=== PATIENT | male | born 1950 | race Caucasian/White ===

== ENCOUNTER 2019-09-07 01:09 | Outpatient (CLI) | payer MEDICARE, MEDICAID, SELFPAY ==
--- NOTE | 2019-09-07 13:39 | DI.RAD_ITS ---
EXAM: XR LUMBAR SPINE AP, LAT CLINICAL HISTORY: PERSISTENT LOW BACK PAIN, CHRONIC,M54.5,G89.29, ? COMP FX. TECHNIQUE: 2D digital imaging was performed. COMPARISON: No exams were available for comparison FINDINGS: BONES: No fractures identified. There are endplate osteophytes throughout the lumbar spine. Degener ative facet arthropathy is seen in the lumbar spine particularly at L4-5 and L5-S1. DISKS: There is disc space narrowing at L3-4 and L5-S1. ALIGNMENT: Lumbar spinal alignment is within normal limits. No spondylolysis or spondylolisthesis. SOFT TISSUE: Vascular calcifications are present. IMPRESSION: 1. No acute fracture or subluxation. 2. Degenerative changes in the lumbar spine. DATA REPOSITORY: RADIATION DOSE DELIVERED:
== END 2019-09-07 01:29 ==
PROVIDERS: PCP Family Medicine; Visit Provider Family Medicine
DX: M54.5 Low back pain (principal); G89.29 Other chronic pain; M47.817 Spondylosis without myelopathy or radiculopathy, lumbosacral region; M51.37 Other intervertebral disc degeneration, lumbosacral region
CPT/HCPCS: 72100

== ENCOUNTER 2019-11-30 21:05 | Outpatient (REF) | payer MEDICARE, MEDICAID, OTHER, SELFPAY ==
[2019-11-30 19:25] LABS: BUN 19 mg/dL (7-18); CREATININE 1.03 mg/dL (0.70-1.30); Calcium 9.7 mg/dL (8.5-10.1); Calculated LDL 124 mg/dL (<100); Chloride 101 mmol/L (98-107); Cholesterol 201 mg/dL (<200); Glucose 121 mg/dL (74-106); HDL Cholesterol 44 mg/dL (40-60); Potassium 4.5 mmol/L (3.5-5.1); Sodium 139 mmol/L (136-145); Triglyceride 166 mg/dL (<150)
[2019-12-02 10:11] LABS: Hepatitis C Ab w Rflx HCV PCR Negative (Negative)
== END 2019-11-30 21:25 ==
LOC: NCHCN 21:05
PROVIDERS: PCP Family Medicine; Visit Provider Family Medicine
DX: I10 Essential (primary) hypertension (principal); R00.0 Tachycardia, unspecified; Z11.59 Encounter for screening for other viral diseases
CPT/HCPCS: 80048; 80061; 86803; 84443

== ENCOUNTER 2020-01-18 22:00 | Outpatient (REF) | payer MEDICARE, MEDICAID, SELFPAY ==
[2020-01-24 10:19] LABS: COVID-19 RT-PCR Result Positive (Negative)
== END 2020-01-18 22:20 ==
LOC: NCHCN 22:00
PROVIDERS: PCP Family Medicine; Visit Provider Nurse Practitioner Family
DX: J06.9 Acute upper respiratory infection, unspecified (principal)
CPT/HCPCS: U0003

== ENCOUNTER 2020-12-14 16:01 | Outpatient (REF) | payer MEDICARE, MEDICAID, SELFPAY ==
[2020-12-14 15:54] LABS: HCT 51.5 % (40.0-50.0); HGB 16.7 g/dL (13.5-17.5); MCH 30.6 pg (27.0-33.0); MCHC 32.4 % (32.0-36.0); MCV 94.3 fL (80-95); MPV 10.4 fL (8.0-11.0); Platelet Count 276 10^3/uL (130-400); RBC 5.46 10^6/uL (4.36-5.78); RDW 13.3 % (11.8-14.1); RDW-SD 46.2 fL; WBC 9.96 10^3/uL (4.4-10.8)
[2020-12-14 16:31] LABS: Bilirubin Negative (Negative); Blood Large (Negative); Clarity Cloudy (Clear); Glucose 100 mg/dL (Negative); Ketones Trace mg/dL (Negative); Leukocyte Esterase Negative (Negative); Nitrite Negative (Negative); Specific Gravity >= 1.030 (1.005-1.025); Urobilinogen 0.2 EU/dL (Up TO 0.2)
[2020-12-14 16:43] LABS: Bacteria Few HPF (Negative); C & S Indicated? Yes; Casts Negative LPF (Negative); Crystals Few Amorphous HPF (Negative); Epithelial Cells Few HPF (Negative); Mucus Moderate (Negative); RBC 20-50 HPF (0-2)
== END 2020-12-14 16:02 | disposition home or self-care (01) ==
LOC: LBN 16:01
PROVIDERS: PCP Family Medicine; Visit Provider Family Medicine
DX: R00.0 Tachycardia, unspecified (principal); R31.0 Gross hematuria
CPT/HCPCS: 85027; 81003; 81015; 82565; 87086

== ENCOUNTER → 2021-01-31 08:56 | Outpatient (BNVA) | payer MEDICARE, SELFPAY | PROVIDERS: PCP Family Medicine; Referring Provider Family Medicine; Visit Provider Nurse Practitioner Gerontology | DX: R31.0 Gross hematuria (principal); N40.1 Benign prostatic hyperplasia with lower urinary tract symptoms; N13.8 Other obstructive and reflux uropathy; J44.9 Chronic obstructive pulmonary disease, unspecified; I10 Essential (primary) hypertension; F17.210 Nicotine dependence, cigarettes, uncomplicated | CPT/HCPCS: 81003; 99204 ==

== ENCOUNTER 2021-01-31 15:25 | Outpatient (REF) | payer MEDICARE, SELFPAY ==
[2021-01-31 14:55] LABS: CREATININE 1.1 mg/dL (0.70-1.30)
[2021-01-31 22:55] LABS: PSA, Screening 1.7 ng/mL (0.0-6.5)
== END 2021-01-31 15:26 | disposition home or self-care (01) ==
LOC: LBN 15:25
PROVIDERS: PCP Family Medicine; Visit Provider Nurse Practitioner Gerontology
DX: R31.9 Hematuria, unspecified (principal); Z12.5 Encounter for screening for malignant neoplasm of prostate
CPT/HCPCS: 84153; 82565

== ENCOUNTER 2021-02-23 00:20 | Outpatient (CLI) | payer MEDICARE, SELFPAY ==
--- NOTE | 2021-02-23 13:00 | DI.CT_ITS ---
Exam(s) CT ABDOMEN PELVIS WO/W EXAM: CT ABDOMEN PELVIS WO/W CLINICAL HISTORY: gross hematuria,R31.9 TECHNIQUE: Imaging Protocol: Axial computed tomography images with coronal and sagittal reformatted images were created and reviewed CONTRAST MATERIAL: Intravenous: Omnipaque 350 Contrast volume:100 mL Oral: No COMPARISON: No exams were available for comparison FINDINGS: ABDOMEN: Lung Bases: Small hiatal hernia. Coronary artery calcifications. Liver: Normal density. No measurable mass. Portal, Superior Mesenteric, and Splenic Veins: Unremarkable. Gallbladder and Biliary Tract: No radiodense calculus or dilation. Pancreas: Normal density, no abnormal calcifications or inflammatory process. Spleen: Normal. Adrenals: No masses seen. Kidneys: Normal size, contour and axis. No radiodense stones or obstructive uropathy. There is a simp le 2.4 cm cyst in the superior pole of the left kidney. No follow-up is recommended. Abdominal Aorta: Abdominal portion non-dilated. Atherosclerosis. Bowel: No obstruction or bowel wall thickening. Appendix is unremarkable. Diverticulosis is seen in t he sigmoid colon but no evidence of acute diverticulitis. Peritoneal Cavity: No ascites, collection or mesenteric inflammatory response. No free air. Lymph Nodes: Within normal limits. Bones: Within normal limits for the patient's age. Soft Tissues: Unremarkable. PELVIS: Bladder: There is a 1 cm nodule along the right posterior urinary bladder wall. It lies just lateral and superior to the insertion of the right ureter. Reproductive Organs: Enlarged prostate gland. Lymph Nodes: Within normal limits. Bones: Within normal limits for the patient's age. IMPRESSION: 1. 1 cm right posterior bladder wall mass. Primary diagnostic concern is for urinary bladder neoplas m. 2. No evidence of nephrolithiasis or hydronephrosis. 3. 2.4 cm simple left renal cyst. RADIATION DOSE DELIVERED: 3,211.63mGy.cm Total DLP 3,211.63mGy.cm Total DLP DATA REPOSITORY: All CT scans at this facility are submitted to the National Radiology Data Registry (NRDR) Dose Index Registry (DIR) with the [employer] (ACR). RADIATION OPTIMIZATION: All CT scans at this facility use at least one of these dose optimization te chniques: automated exposure control; mA and/or kV adjustment per patient size (includes targeted exa ms where dose is matched to clinical indication); or iterative reconstruction.
[2021-02-23] MEDS: Omnipaque 350 MG/ML 100 ML BTL IJ (13:06)
== END 2021-02-23 00:40 ==
PROVIDERS: PCP Family Medicine; Visit Provider Nurse Practitioner Gerontology
DX: R31.0 Gross hematuria (principal); N32.89 Other specified disorders of bladder; N28.1 Cyst of kidney, acquired
CPT/HCPCS: 74178; J3490

== ENCOUNTER → 2021-03-12 08:11 | Outpatient (BNVA) | payer MEDICARE, SELFPAY | PROVIDERS: PCP Family Medicine; Referring Provider Family Medicine; Visit Provider Nurse Practitioner Gerontology | DX: R31.0 Gross hematuria (principal); N32.89 Other specified disorders of bladder; Z71.2 Person consulting for explanation of examination or test findings | CPT/HCPCS: 99214 ==

== ENCOUNTER 2021-03-20 01:48 | Outpatient (CLI) | payer MEDICARE, SELFPAY ==
[2021-03-20 12:59] LABS: Source Nasal/Nares
[2021-03-20 16:28] LABS: COVID-19 PCR Negative (Negative)
== END 2021-03-20 01:49 | disposition home or self-care (01) ==
PROVIDERS: Nurse Practitioner Gerontology; PCP Family Medicine; Visit Provider Urology
DX: Z20.822 Contact with and (suspected) exposure to COVID-19 (principal); Z01.818 Encounter for other preprocedural examination
CPT/HCPCS: 87635

== ENCOUNTER 2021-03-22 08:00 | Day surgery (SDC) | payer MEDICARE, SELFPAY ==
[2021-03-22 08:19] VITALS: BP 143/97; PULSE 107; RESP 22; TEMP 36.7; O2SAT 98
[2021-03-22] MEDS: Lactated Ringers 1,000 ML 80 ML IV (09:03)
--- NOTE | 2021-03-22 09:54 | W.ANESPRE ---
General Info Date of Service Date Performed: 03/22/21 Height: 5 ft 11 in Weight: 104.6 kg Body Mass Index (BMI): 32.1 Surgical Procedure: Operation Date: 03/22/21 10:10 Proposed Procedures Side Surgeon p Cystoscopy w/TURBT Carter Ireland MD Meds Allergies and Home Medications Allergies Allergy/AdvReac Type Severity Reaction Status Date / Time mussels Allergy Severe Anaphylaxis Unverified 03/22/21 08:52 Iodinated Contrast Media Allergy Verified 03/22/21 08:52 Home Medication Medication Instructions Recorded albuterol sulfate 90 mcg/actuation 2 puff INHALATION Q4H PRN g 12/20/20 aerosol inhaler budesonide-formoterol HFA 80 2 puff INHALATION DAILY g 12/20/20 mcg-4.5 mcg/actuation aerosol inhaler cyclobenzaprine 10 mg tablet 10 mg PO TID PRN 12/20/20 lisinopril 10 mg tablet 10 mg PO DAILY 12/20/20 meloxicam 15 mg tablet 15 mg PO DAILY 12/20/20 Current Visit Medications: Current Medications Generic Name Dose Route Start Last Admin Trade Name Freq PRN Reason Stop Dose Admin Ringer's Solution 1,000 mls @ 80 mls/hr 03/22/21 06:00 03/22/21 09:03 IV 04/20/21 23:59 80 mls/hr INFUSION BRYON Administration Cefazolin Sodium/Dextrose 2 gm in 50 mls @ 100 mls/hr 03/22/21 06:00 Ancef Duplex IVPB 03/22/21 16:00 PREOP BRYON IV Miscellaneous Supplies 1 each 03/22/21 06:00 Iv Access IV 04/20/21 23:59 DIRECTED BRYON Sodium Chloride 0 ml 03/22/21 06:00 Normal Saline Flush 10 Ml Syr IV 04/20/21 23:59 PRN PRN Sodium Chloride 0 ml 03/22/21 06:00 Normal Saline 10 Ml Vial IJ 04/20/21 23:59 DIRECTED PRN Sterile Water 0 ml 03/22/21 06:00 Water,Injection,Sterile 10 Ml Vial IJ 04/20/21 23:59 DIRECTED PRN PFSH Active Problems Active Problems: Problem Status Onset Code BPH w urinary obs/LUTS N40.1, N13.8 Medical History Medical History COPD (chronic obstructive pulmonary disease) COVID-19 01/2020-Asymptomatic Essential hypertension Gross hematuria Smoker Tachycardia Surgical History Surgical History Hx of tonsillectomy Tobacco Smoking/Tobacco Use Status: Current every day Substance Use Substance use: Never Vital Signs and Lab Results Vital Signs Most Recent Vital Signs in EMR: Most Recent Vital Signs Temp Pulse Resp BP Pulse Ox 36.7 C 107 H 22 143/97 H 98 03/22/21 08:19 03/22/21 08:19 03/22/21 08:19 03/22/21 08:19 03/22/21 08:19 Lab Results Blood Type / Crossmatch: No Data to Display Complete Blood Count: No Data to Display Complete Metabolic Panel: No Data to Display Liver Function Panel: No Data to Display Coagulation Panel: No Data to Display Cardiac Panel: No Data to Display Arterial Blood Gas: No Data to Display Venous Blood Gas: No Data to Display Pancreas Panel: No Data to Display Thyroid Panel: No Data to Display Infectious Disease: Coronavirus (COVID-19)(PCR) Negative (Negative) 03/20/21 08:58 03/20/21 Coronavirus 2019 Source Nasal/Nares 03/20/21 08:58 03/20/21 Blood Cultures: No Data to Display Toxicology Panel: No Data to Display Anesthesia Assessment and Plan Anesthesia History Personal History: No History of Anesthesia Complications Family History: No Family History of Anesthesia Complications Exercise Tolerance Exercise Tolerance: Metabolic Equivalents>4 Cardiac & Pulmonary Exam Cardiac Exam: Normal S1/S2 Heart Sounds Pulmonary Exam: Clear Bilateral Breath Sounds Implantable Cardiac Device Does patient have a Pacemaker or an ICD?: No Airway Exam Known Difficult Airway: Yes Mallampati Class: 2 Mouth Opening: Normal (> 3cm) Thyromental Distance: Greater than 3 cm Neck Range of Motion: Full ROM and Limited ROM Neck Circumference: Thick Teeth Condition: Normal Dentition ASA Classification ASA Score: ASA 2 Emergency Case?: No NPO Status NPO Status: NPO Clears >2 hours, Solids >8 hours Anesthesia Plan Resuscitation Status: Full Code Anesthesia Technique: General Anesthesia Airway Planned: LMA Monitors Used: Standard Monitors Preoperative Comments:: 70 yo male for TURBT. Sig PMHx: COPD (albuterol, budesonide-formoterol), HTN (lisinopril), smoker.
[2021-03-22 09:56] VITALS: BMI 32.1
--- NOTE | 2021-03-22 10:05 | W.PM.HP.N ---
Date of service: 03/22/21 Time of Service: 10:23 Assessment and Plan Assessment and plan (1) Gross hematuria: Assessment and plan: For cystoscopy with possible TUR bladder tumor History of Present Illness History of Present Illness Chief Complaint: Gross hematuria Narrative: Isaac is a 70-year-old male with history of gross hematuria. He has had several bouts of gross hematuria that lasted a few days each time. He notes since his last episode he has had no further gross hematuria. Originally there was thought that there was flank pain that coincided with the gross hematuria. Then he noted that he was caregiving for his which was causing him back pain. His CT urogram showed a questionable bladder mass. He presents for cystoscopy and possible TURBT. We arranged for an overnight stay in the hospital if he should need continuous bladder irrigation. Review of Systems Constitutional Comments: No fevers or chills No vision change or dysphasia No diabetes or thyroid Short of breath due ti COPD. No hemoptysis No chest pain or palpitations No nausea, vomiting, hepatitis, ulcers, jaundice No seizures, strokes or peripheral neuropathy No bleeding disorders or anemia No gout PFSH All Active Problems BPH w urinary obs/LUTS (Acute) Medical History COPD (chronic obstructive pulmonary disease) COVID-19 01/2020-Asymptomatic Essential hypertension Gross hematuria Smoker Tachycardia Surgical History Hx of tonsillectomy Social History Smoking/Tobacco Use Status: Current every day Smoking risk assessment performed?: Yes Drug use: Never Meds Allergies and Home Medications Allergies Allergy/AdvReac Type Severity Reaction Status Date / Time mussels Allergy Severe Anaphylaxis Unverified 03/22/21 08:52 Iodinated Contrast Media Allergy Verified 03/22/21 08:52 Home Medications Medication Instructions Recorded Confirmed Type albuterol sulfate 90 mcg/actuation 2 puff INHALATION Q4H PRN g 12/20/20 03/22/21 History aerosol inhaler budesonide-formoterol HFA 80 2 puff INHALATION DAILY g 12/20/20 03/22/21 History mcg-4.5 mcg/actuation aerosol inhaler cyclobenzaprine 10 mg tablet 10 mg PO TID PRN 12/20/20 03/22/21 History lisinopril 10 mg tablet 10 mg PO DAILY 12/20/20 03/22/21 History meloxicam 15 mg tablet 15 mg PO DAILY 12/20/20 03/22/21 History Exam Const General: cooperative Neck Neck: supple Resp Effort & Inspection: normal respiratory effort Auscultation: clear to auscultation bilaterally Cardio Rate: regular rate Rhythm: regular rhythm GI Inspection: normal to inspection Palpation: soft Neuro General: patient alert, patient awake and patient oriented x3 Results Last Vital Signs Temp 36.7 C 03/22/21 08:19 Pulse 107 H 03/22/21 08:19 Resp 22 03/22/21 08:19 BP 143/97 H 03/22/21 08:19 Pulse Ox 98 03/22/21 08:19
[2021-03-22] MEDS: ceFAZolin 2 GM/50 ML BAG IVPB (10:37)
[2021-03-22] MEDS: Lidocaine 2% Jelly 6 ML SYR (10:50)
--- NOTE | 2021-03-22 10:58 | BLADDER_PTH ---
PATIENT: Isaac Pascal LOC: [facility] U#:[id number] AGE/SX: 70/M ROOM: RE03/22/[address]: Carter Ireland MD : [id number] BED: DIS: 03/22/2021 SPEC #: [id number] RECD: 03/22/21 12:40 STATUS: ANABELA REQ #: [id number] JAMA: 03/22/21 10:[address]: Carter Ireland DEPT: Surgical Specimen RECD BY: Kelly Huertas ENTERED: 03/22/21 12:40 SP TYPE: Bladder OTHR DR: Joe Caban Tissues: 1 - BLADDER CURRETTINGS Procedures: GROSS AND MICRO LEVEL 5 Comments: [id number]
--- NOTE | 2021-03-22 11:05 | W.PM.DSUDISC ---
Discharge Plan Disposition Patient Disposition: HOME Condition: Stable Discharge Details Reason For Visit: bladder tumor Attending Provider: Carter Ireland Primary Care Provider: Joe Caban Home Meds and New Rx's Prescriptions: No Action meloxicam 15 mg tablet 15 mg PO DAILY RF: 0 albuterol sulfate 90 mcg/actuation HFA aerosol inhaler 2 puff inhalation Q4H PRNRF: 0 budesonide-formoterol 80-4.5 mcg/actuation HFA aerosol inhaler 2 puff inhalation DAILY RF: 0 lisinopril 10 mg tablet 10 mg PO DAILY RF: 0 cyclobenzaprine 10 mg tablet 10 mg PO TID PRNRF: 0 Discharge Instructions Additional Instructions: no straining or lifting over 10 pounds for 5 to 7 days needs followup appt in 2 weeks to review surgical pathology Activity:: see above Shower/Bathe:: 24 hours Diet:: As Tolerated Discharge Orders Discharge Orders: Discharge Order (Routine); Ordered 03/22/21 Ordered By: Carter Ireland DS: Diagnosis Discharge Diagnosis (1) Gross hematuria:
--- NOTE | 2021-03-22 11:12 | ROE_ITS ---
Date of service: 03/22/21 Time of Service: 11:12 Operative Note Operative Note DATE OF PROCEDURE: 03/22/21 PRE-OP DIAGNOSIS: Gross hematuria POST-OP DIAGNOSIS: other Bladder tumor PROCEDURE: cystoscopy with TURBT (2 to 5 cm) - right lateral wall SURGEON: Carter Ireland ANESTHESIA TYPE: Local By Surgeon and General:No Airway Refer to Anesthesia Record ESTIMATED BLOOD LOSS: 20 PATHOLOGY: other (bladder tumor) COMPLICATIONS: None Patient was transported to: same day Patient's condition: stable Indications: This is a 70-year-old gentleman who has a history of intermittent episodes of gross painless hematuria. On CT urogram, there was a filling defect identified on the right side of his bladder. He presents for cystoscopy with possible transurethral resection Findings: 4 cm papillary lesion right lateral bladder wall extending to right ureteral orifice Procedure Description: The patient was brought to the operating room on 03/22/2021. He was given preoperative IV antibiotics. After successful induction of general anesthesia, he was placed in the dorsal lithotomy position. 2% Xylocaine jelly was instilled into the urethra to act as a local anesthetic. A 22 [place] rigid cystoscope was passed through the urethra and into the bladder. The urethra and bladder were inspected with a 30 degree lens. The pendulous, bulbar and membranous urethra was all appeared normal with no strictures. The prostatic urethra showed lateral lobe enlargement but no significant median lobe. The bladder neck was entered and the bladder mucosa was inspected. The left ureteral orifice appeared normal. There was a papillary lesion measuring approximately 4 cm arising from the right lateral bladder wall and extending out toward the right ureteral orifice. Some of the papillary mucosa was actually in front of the ureteral orifice as well. No additional abnormal areas were noted. We removed the cystoscope and passed a 24 [place] resectoscope sheath through the urethra into the bladder. Transurethral resection of the visible abnormal mucosa was performed using an [employer] resectoscope and bipolar cautery. All resected tissue was evacuated and sent to pathology for permanent section. Coagulation current was used on the tumor anterior to the ureteral orifice. The orifice remained patent at the completion of the procedure. With no active bleeding, we elected not to place a urethral catheter. The bladder was emptied and the resectoscope was removed. The patient tolerated the procedure well with no complications.
[2021-03-22 11:16] VITALS: BP 128/80; PULSE 97; RESP 20; TEMP 36.3; O2SAT 98
[2021-03-22 11:48] VITALS: BP 139/82; PULSE 81; RESP 20; TEMP 36.5; O2SAT 94
[2021-03-22] MEDS: Phenazopyridine 200 MG TAB PO (11:54)
--- NOTE | 2021-03-22 12:01 | W.ANESPOSTOP ---
Postoperative Evaluation Date, Time and Location Date Performed: 03/22/21 Time Performed: 11:48 Patient Location: Day Surgery Unit Vital Signs Most Recent Imported Vital Signs: Most Recent Vital Signs Temp Pulse Resp BP Pulse Ox 36.5 C 81 20 139/82 94 03/22/21 11:48 03/22/21 11:48 03/22/21 11:48 03/22/21 11:48 03/22/21 11:48 Pain Score Most Recent Pain Score: Most Recent Pain Score Pain Level 3 03/22/21 11:48 Assessment Mental Status: Awake (Alert & Oriented to Patient Baseline) Airway and Respiratory Function: Patent airway with normal (patient baseline) respiratory exam Cardiovascular Function: Hemodynamically Stable Hydration Status: Adequately Hydrated Nausea & Vomiting: No Nausea or Vomiting Pain: Pain is tolerable per patient Peripheral Nerve Block: Patient did not receive a nerve block
== END 2021-03-22 12:46 | disposition home or self-care (01) ==
PROVIDERS: PCP Family Medicine; Visit Provider Urology
PROC: 0TJB8ZZ Inspection of Bladder, Via Natural or Artificial Opening Endoscopic (ICD-10-PCS; CPT 52000; principal; 2021-03-22 10:00)
DX: R31.0 Gross hematuria (principal); J44.9 Chronic obstructive pulmonary disease, unspecified; F17.210 Nicotine dependence, cigarettes, uncomplicated; R00.0 Tachycardia, unspecified; Z86.16 Personal history of COVID-19; C67.2 Malignant neoplasm of lateral wall of bladder
CPT/HCPCS: 52235; 87624; 88307; J0690; J1885; J2001; J2405

== ENCOUNTER → 2021-04-06 10:49 | Outpatient (BNVA) | payer MEDICARE, SELFPAY | PROVIDERS: PCP Family Medicine; Referring Provider Family Medicine; Visit Provider Urology | DX: C67.9 Malignant neoplasm of bladder, unspecified (principal); R35.0 Frequency of micturition; R30.0 Dysuria | CPT/HCPCS: 99213 ==

== ENCOUNTER → 2021-07-06 08:44 | Outpatient (BNVA) | payer MEDICARE, SELFPAY | PROVIDERS: PCP Family Medicine; Referring Provider Family Medicine; Visit Provider Urology | DX: N40.1 Benign prostatic hyperplasia with lower urinary tract symptoms (principal); N13.8 Other obstructive and reflux uropathy; C67.9 Malignant neoplasm of bladder, unspecified | CPT/HCPCS: 52000; 81003 ==

== ENCOUNTER 2021-12-05 16:28 | Outpatient (REF) | payer MEDICARE, SELFPAY ==
[2021-12-05 15:24] LABS: Anion Gap 5.9 mmol/L (3-11); BUN 15 mg/dL (7-18); CO2 30.1 mmol/L (21.0-32.0); CREATININE 1.1 mg/dL (0.70-1.30); Calcium 9.3 mg/dL (8.5-10.1); Chloride 102 mmol/L (98-107); Estimated GFR 70.88 (mL/min/1.73m2); Glucose 268 mg/dL (74-106); NT-proBNP 39 pg/mL (<300); Potassium 4.6 mmol/L (3.5-5.1); Sodium 138 mmol/L (136-145)
[2021-12-05 15:51] LABS: Calculated LDL 122 mg/dL (<100); Cholesterol 195 mg/dL (<200); HDL Cholesterol 52 mg/dL (40-60); Triglyceride 109 mg/dL (<150)
== END 2021-12-05 16:29 | disposition home or self-care (01) ==
LOC: NCHCN 16:28
PROVIDERS: PCP Family Medicine; Visit Provider Family Medicine
DX: I10 Essential (primary) hypertension (principal); R06.09 Other forms of dyspnea
CPT/HCPCS: 80048; 80061; 83880

== ENCOUNTER → 2022-01-04 00:19 | Outpatient (CLI) | payer MEDICARE, SELFPAY ==
--- NOTE | 2022-01-04 07:52 | DI.CTLCSR_ITS ---
Exam(s) CT CHEST LUNG CANCER SCREEN EXAM: CT CHEST LUNG CANCER SCREEN CLINICAL HISTORY: SMOKER F17.210 F17.200 SCREENING FOR LUNG CANCER. TECHNIQUE: Imaging Protocol: Low Dose Technique CONTRAST MATERIAL: None COMPARISON: CT CT ABDOMEN PELVIS WO/W from 02/23/2021 FINDINGS: CHEST: LUNGS: There are no ominous pulmonary nodules. There are no confluent infiltrates. No pleural effusi ons. MEDIASTINUM: There is no obvious hilar nor mediastinal adenopathy. CARDIAC: Heart size is normal. There is no pericardial effusion.Caliber of the thoracic aorta is wit hin normal limits. OTHER: OSSEOUS: No significant osseous lesions.. IMPRESSION: 1. No significant pulmonary nodules. 2. No infiltrates nor pleural effusions nor intrathoracic adenopathy. 3. Lung RADS Cat 1 - Negative: No nodules and definitely benign nodules Lung-RADS 1.0 CATEGORIES: Category 0 - Prior chest CT exam(s) being located for comparison. Category 1 - Annual screening in 12 months. No nodules or definitely benign nodules. Category 2 - Annual screening in 12 months. Benign appearance. Nodules with low likelihood of becomin g active cancer. Category 3 - 6-month follow-up. Probably benign. Short-term follow-up suggested. Nodules with low lik elihood of becoming active cancer. Category 4A - 3-month follow-up and CT/PET if >8 mm in size. Suspicious finding. Findings which requi re additional testing. Category 4B - Findings which require additional testing and tissue sampling. Category 4X - Category 3 or 4 nodules with additional features or imaging findings that increases the suspicion of malignancy. Modifier S- Potentially clinically significant findings (non lung cancer) RADIATION DOSE DELIVERED: Total DLP !Error CTDIvol DATA REPOSITORY: All CT scans at this facility are submitted to the National Radiology Data Registry (NRDR) Dose Index Registry (DIR) with the [employer] (ACR). RADIATION OPTIMIZATION: All CT scans at this facility use at least one of these dose optimization te chniques: automated exposure control; mA and/or kV adjustment per patient size (includes targeted exa ms where dose is matched to clinical indication); or iterative reconstruction.
== END ==
PROVIDERS: PCP Family Medicine; Visit Provider Family Medicine
DX: F17.210 Nicotine dependence, cigarettes, uncomplicated (principal); Z12.2 Encounter for screening for malignant neoplasm of respiratory organs
CPT/HCPCS: 52000; 71271; 81003

== ENCOUNTER 2022-03-21 06:13 | Day surgery (SDC) | payer MEDICARE, SELFPAY ==
[2022-03-21] VITALS (10 sets, daily range): BP systolic 118–150; BP diastolic 70–102; PULSE 70–105; RESP 14–20; TEMP 36.1–36.5; O2SAT 93–933; BMI 29.4
[2022-03-21] MEDS: Lactated Ringers 1,000 ML 80 ML IV (06:45)
--- NOTE | 2022-03-21 07:01 | W.ANESPRE ---
General Info Date of Service Date Performed: 03/21/22 Height: 5 ft 11 in Weight: 95.7 kg Body Mass Index (BMI): 29.4 Surgical Procedure: Operation Date: 03/21/22 07:40 Proposed Procedure Side Surgeon p Cystoscopy/Transurethral Resection Bladder Tumor/Instill Mytomycin Carter Ireland MD Meds Allergies and Home Medications Allergies Allergy/AdvReac Type Severity Reaction Status Date / Time mussels Allergy Severe Anaphylaxis Unverified 03/21/22 06:24 Iodinated Contrast Media Allergy Verified 03/21/22 06:24 Home Medication Medication Instructions Recorded albuterol sulfate 90 mcg/actuation 2 puff inhalation Q4H PRN 12/20/20 aerosol inhaler budesonide-formoterol HFA 80 2 puff inhalation DAILY 12/20/20 mcg-4.5 mcg/actuation aerosol inhaler cyclobenzaprine 10 mg tablet 10 mg PO TID PRN 12/20/20 lisinopril 10 mg tablet 10 mg PO DAILY 12/20/20 acetaminophen 500 mg tablet 1,000 mg PO Q6H PRN 01/17/22 (Tylenol Extra Strength) varenicline 0.5 mg (11)-1 mg (42) See Rx Instructions PO PER PKG DIR 01/17/22 tablets in a dose pack Current Visit Medications: Current Medications Generic Name Dose Route Start Last Admin Trade Name Freq PRN Reason Stop Dose Admin Mitomycin 40 mg/ Sodium 0 mg 03/21/22 06:00 Chloride 40 ml IJ 03/21/22 16:00 TODAY BRYON Ringer's Solution 1,000 mls @ 80 mls/hr 03/21/22 06:00 03/21/22 06:45 IV 04/19/22 23:59 80 mls/hr INFUSION BRYON Administration Cefazolin Sodium/Dextrose 2 gm in 50 mls @ 100 mls/hr 03/21/22 06:00 Ancef Duplex IVPB 03/21/22 16:00 PREOP BRYON IV Miscellaneous Supplies 1 each 03/21/22 06:00 Iv Access IV 04/19/22 23:59 DIRECTED BRYON Sodium Chloride 0 ml 03/21/22 06:00 Normal Saline Flush 10 Ml Syr IV 04/19/22 23:59 PRN PRN Sodium Chloride 0 ml 03/21/22 06:00 Normal Saline 10 Ml Vial IJ 04/19/22 23:59 DIRECTED PRN Sterile Water 0 ml 03/21/22 06:00 Water,Injection,Sterile 10 Ml Vial IJ 04/19/22 23:59 DIRECTED PRN PFSH Active Problems Active Problems: Problem Status Onset Code BPH w urinary obs/LUTS N40.1, N13.8 Primary bladder malignant neoplasm C67.9 Medical History Medical History COPD (chronic obstructive pulmonary disease) COVID-19 01/2020-Asymptomatic Essential hypertension Gross hematuria Smoker Tachycardia Surgical History Surgical History (Updated 03/21/22 @ 06:17 by Ann Marie Mora, JAMIN) History of transurethral resection of bladder tumor (TURBT) 03/22/2022 Hx of tonsillectomy Tobacco Smoking/Tobacco Use Status: Current every day Tobacco Type: cigarettes Alcohol Alcohol Intake: current Alcohol intake frequency: a few times a week Substance Use Substance use: Never Substance use type: does not use Vital Signs and Lab Results Vital Signs Most Recent Vital Signs in EMR: Most Recent Vital Signs Temp Pulse Resp BP Pulse Ox 36.3 C L 104 H 18 118/92 H 94 03/21/22 06:20 03/21/22 07:00 03/21/22 07:00 03/21/22 07:00 03/21/22 07:00 Lab Results Blood Type / Crossmatch: No Data to Display Complete Blood Count: No Data to Display Complete Metabolic Panel: No Data to Display Liver Function Panel: No Data to Display Coagulation Panel: No Data to Display Cardiac Panel: No Data to Display Arterial Blood Gas: No Data to Display Venous Blood Gas: No Data to Display Pancreas Panel: No Data to Display Thyroid Panel: No Data to Display Infectious Disease: No Data to Display Blood Cultures: No Data to Display Toxicology Panel: No Data to Display Anesthesia Assessment and Plan Anesthesia History Personal History: No History of Anesthesia Complications and No History of General Anesthesia Family History: No Family History of Anesthesia Complications Exercise Tolerance Exercise Tolerance: Metabolic Equivalents>4 Pertinent Negatives Pertinent Negatives: No Symptoms of GERD, No Major Cardiovascular Symptoms or Complaints and No Major Pulmonary Symptoms or Complaints Cardiac & Pulmonary Exam Cardiac Exam: Normal S1/S2 Heart Sounds Pulmonary Exam: Clear Bilateral Breath Sounds Implantable Cardiac Device Does patient have a Pacemaker or an ICD?: No Airway Exam Known Difficult Airway: Yes Mallampati Class: 2 Mouth Opening: Normal (> 3cm) Thyromental Distance: Greater than 3 cm Neck Range of Motion: Full ROM and Limited ROM Neck Circumference: Thick Teeth Condition: Normal Dentition ASA Classification ASA Score: ASA 2 Emergency Case?: No NPO Status NPO Status: NPO Clears >2 hours, Solids >8 hours Anesthesia Plan Resuscitation Status: Full Code Anesthesia Technique: General Anesthesia Airway Planned: LMA Monitors Used: Standard Monitors
--- NOTE | 2022-03-21 07:13 | W.PM.HP.N ---
Date of service: 03/21/22 Time of Service: 07:14 Assessment and Plan Assessment and plan (1) Primary bladder malignant neoplasm: Status: Acute Assessment and plan: With his recurrent tumor, we will plan to do a TUR and instill a single dose of Mitomycin C into the bladder History of Present Illness History of Present Illness Chief Complaint: Bladder cancer Narrative: This is a 71-year-old gentleman who has a history of low-grade, noninvasive urothelial cell carcinoma of the bladder.? His initial diagnosis was in March 2021. On his initial surveillance cystoscopy, no recurrent tumor was identified.? Followup cystoscopy showed a small papillary lesion at the dome. He presents for TURBT. He is not seeing any gross hematuria.? He does have some double voiding but no episodes of retention. Review of Systems Narrative: No fevers or chills No vision change or dysphasia No diabetes or thyroid No shortness of breath, cough or hemoptysis No chest pain or palpitations No nausea, vomiting, hepatitis, ulcers, jaundice, diarrhea or constipation No seizures, strokes or peripheral neuropathy No bleeding disorders or anemia No gout PFSH All Active Problems BPH w urinary obs/LUTS (Acute) Primary bladder malignant neoplasm (Acute) Medical History COPD (chronic obstructive pulmonary disease) COVID-19 01/2020-Asymptomatic Essential hypertension Gross hematuria Smoker Tachycardia Surgical History (Updated 03/21/22 @ 06:17 by Ann Marie Mora RN) History of transurethral resection of bladder tumor (TURBT) 03/22/2022 Hx of tonsillectomy Social History Smoking/Tobacco Use Status: Current every day Tobacco Type: cigarettes Smoking risk assessment performed?: Yes Alcohol Intake: current Alcohol Intake frequency: a few times a week Drug use: Never Substance use type: does not use Do you feel safe at home: Yes Do you feel safe in your relationship?: Yes Meds Allergies and Home Medications Allergies Allergy/AdvReac Type Severity Reaction Status Date / Time mussels Allergy Severe Anaphylaxis Unverified 03/21/22 06:24 Iodinated Contrast Media Allergy Verified 03/21/22 06:24 Home Medications Medication Instructions Recorded Confirmed Type albuterol sulfate 90 mcg/actuation 2 puff inhalation Q4H PRN 12/20/20 03/21/22 History aerosol inhaler budesonide-formoterol HFA 80 2 puff inhalation DAILY 12/20/20 03/21/22 History mcg-4.5 mcg/actuation aerosol inhaler cyclobenzaprine 10 mg tablet 10 mg PO TID PRN 12/20/20 03/21/22 History lisinopril 10 mg tablet 10 mg PO DAILY 12/20/20 03/21/22 History acetaminophen 500 mg tablet 1,000 mg PO Q6H PRN 01/17/22 03/21/22 History (Tylenol Extra Strength) varenicline 0.5 mg (11)-1 mg (42) See Rx Instructions PO PER PKG DIR 01/17/22 03/21/22 History tablets in a dose pack Exam Const General: cooperative Neck Neck: supple Resp Effort & Inspection: normal respiratory effort Auscultation: clear to auscultation bilaterally Cardio Rate: regular rate Rhythm: regular rhythm GI Palpation: no masses Neuro General: patient alert, patient awake and oriented Results Last Vital Signs Temp 36.3 C L 03/21/22 06:20 Pulse 104 H 03/21/22 07:00 Resp 18 03/21/22 07:00 BP 118/92 H 03/21/22 07:00 Pulse Ox 94 03/21/22 07:00 Time Spent Time spent with Patient: <40 minutes Time was spent: counseling the patient
[2022-03-21] MEDS: ceFAZolin 2 GM/50 ML BAG IVPB (08:02)
[2022-03-21] MEDS: Lidocaine 2% Jelly 6 ML SYR (08:07)
--- NOTE | 2022-03-21 08:16 | BLADDER_PTH ---
PATIENT: Isaac Pascal LOC: [facility] U#:[id number] AGE/SX: 71/M ROOM: RE03/21/[address]: Carter Ireland MD : 1950 BED: DIS: 03/21/2022 SPEC #: [id number] RECD: 03/21/22 12:21 STATUS: ANABELA REQ #: [id number] JAMA: 03/21/22 08:[address]: Carter Ireland DEPT: Surgical Specimen RECD BY: Kelly Huertas ENTERED: 03/21/22 12:22 SP TYPE: Bladder OTHR DR: Joe Caban Tissues: 1 - BLADDER BIOPSY Procedures: GROSS AND MICRO LEVEL 4 Comments: [id number]
[2022-03-21] MEDS: mitoMYcin 40 MG, Normal Saline 40 ML IJ (08:18)
--- NOTE | 2022-03-21 08:31 | W.PM.DSUDISC ---
Date of service: 03/21/22 Time of Service: 08:31 Discharge Plan Disposition Patient Disposition: Home Condition: Stable Discharge Details Reason For Visit: bladder tumor Attending Provider: Carter Ireland Primary Care Provider: Joe Caban Home Meds and New Rx's Prescriptions: No Action albuterol sulfate 90 mcg/actuation HFA aerosol inhaler 2 puff inhalation Q4H PRN budesonide-formoterol 80-4.5 mcg/actuation HFA aerosol inhaler 2 puff inhalation DAILY lisinopril 10 mg tablet 10 mg PO DAILY cyclobenzaprine 10 mg tablet 10 mg PO TID PRN varenicline 0.5 mg (11)- 1 mg (42) tablets,dose pack See Rx Instructions PO PER PKG DIR Rx Instructions: PO PER PKG DIR acetaminophen [Tylenol Extra Strength] 500 mg tablet 1,000 mg PO Q6H PRN Discharge Instructions Additional Instructions: leave montiel clamped with Mitomycin in place for 1 to 2 hours - then unclamp montiel, drain bladder and remove montiel catheter unclamp catheter and remove montiel sooner prn pain followup 1 to 2 week for pathology results Activity:: Activity as Tolerated Shower/Bathe:: 24 hours Diet:: As Tolerated Discharge Orders Discharge Orders: Discharge Order (Routine); Ordered 03/21/22 Ordered By: Carter Ireland Discharge Data Discharge Comment: pt should void prior to discharge DS: Diagnosis Discharge Diagnosis (1) Primary bladder malignant neoplasm: Status: Acute
--- NOTE | 2022-03-21 08:37 | W.PM.OP ---
Date of service: 03/21/22 Time of Service: 08:40 Operative Note Operative Note DATE OF PROCEDURE: 03/21/22 PRE-OP DIAGNOSIS: Bladder tumor POST-OP DIAGNOSIS: same PROCEDURE: cystoscopy, TUR Bladder tumor, instillation of Mitomycin C into bladdere SURGEON: Carter Ireland ANESTHESIA TYPE: General LMA/ETT Refer to Anesthesia Record ESTIMATED BLOOD LOSS: 5 PATHOLOGY: other (bladder tumor) COMPLICATIONS: None Patient was transported to: PACU Patient's condition: stable Implants: 16 Canadian montiel with 10 cc sterile water in balloon Indications: This is a 71-year-old gentleman who has a history of low-grade, noninvasive urothelial cell carcinoma of the bladder. On surveillance cystoscopy, we identified a papillary lesion up towards the dome. He presents now for transurethral resection of the lesion and instillation of chemotherapy into the bladder. Findings: small papillary lesion at dome of bladder (< 2 cm) Procedure Description: The patient was brought to the operating room on 03/21/2022. After successful induction of general anesthesia, he was placed in the dorsal lithotomy position. His genitalia was prepped and draped. 2% Xylocaine jelly was instilled into the urethra to act as a local anesthetic. A 24 Canadian resectoscope sheath was passed through the urethra into the bladder. The bladder was inspected with the 30 degree lens. Both ureteral orifices appeared normal with no blood coming from either side. A papillary lesion measuring less than 2 cm was identified up at the dome of the bladder. No additional papillary or nodular lesions were seen. We then used an [employer] resectoscope and bipolar cautery to resect the visible tumor. The tumor was evacuated and sent to pathology for permanent section. The base of the resection site was then cauterized using the coagulation current. The resectoscope was removed and a 18 Canadian Montiel catheter was passed through the urethra into the bladder. The catheter balloon was inflated with 10 cc of sterile water. A solution containing 40 mg of Mitomycin-C mixed in 40 mL of dilute was then instilled into the bladder. The catheter was clamped leaving the chemotherapy agent within the bladder. The patient was taken to the recovery room in stable condition. We will plan on leaving the chemotherapy agent in the bladder for 1 to 2 hours before draining the bladder and removing the Montiel. The catheter will be removed sooner if the patient has significant pain.
[2022-03-21] MEDS: Phenazopyridine 200 MG TAB PO (08:47)
--- NOTE | 2022-03-21 13:14 | W.ANESPOSTOP ---
Postoperative Evaluation Date, Time and Location Date Performed: 03/21/22 Time Performed: 13:14 Patient Location: Other Vital Signs Most Recent Imported Vital Signs: Most Recent Vital Signs Temp Pulse Resp BP Pulse Ox 36.4 C L 82 18 139/89 93 03/21/22 10:05 03/21/22 10:05 03/21/22 10:05 03/21/22 10:05 03/21/22 10:05 Pain Score Most Recent Pain Score: Most Recent Pain Score Pain Level 3 03/21/22 10:05 Assessment Mental Status: Other Airway and Respiratory Function: Other Cardiovascular Function: Other Hydration Status: Adequately Hydrated (Not assessed) Nausea & Vomiting: No Nausea or Vomiting (Not assessed) Pain: Other Peripheral Nerve Block: Other Postoperative Comments:: Patient not assessed. Discharged prior to anesthesia evaluating patient.
== END 2022-03-21 10:45 | disposition home or self-care (01) ==
PROVIDERS: PCP Family Medicine; Visit Provider Urology
PROC: 0TBB8ZZ Excision of Bladder, Via Natural or Artificial Opening Endoscopic (ICD-10-PCS; CPT 52234; principal; 2022-03-21 07:30)
DX: C67.1 Malignant neoplasm of dome of bladder (principal); I10 Essential (primary) hypertension
CPT/HCPCS: 52234; 51720; 88305; J0690; J1100; J2405; J2704; J9280

== ENCOUNTER → 2022-04-12 14:50 | Outpatient (BNVA) | payer MEDICARE, SELFPAY | PROVIDERS: PCP Family Medicine; Referring Provider Family Medicine; Visit Provider Urology | DX: C67.9 Malignant neoplasm of bladder, unspecified (principal) | CPT/HCPCS: 99213 ==

== ENCOUNTER → 2022-05-01 14:42 | Outpatient (BNVA) | payer MEDICARE, SELFPAY | PROVIDERS: PCP Family Medicine; Referring Provider Family Medicine; Visit Provider Nurse Practitioner Gerontology | DX: R39.89 Other symptoms and signs involving the genitourinary system (principal); C67.9 Malignant neoplasm of bladder, unspecified; Z98.890 Other specified postprocedural states | CPT/HCPCS: 51798; 81003; 99213 ==

== ENCOUNTER 2022-05-01 15:12 | Outpatient (REF) | payer MEDICARE, SELFPAY | END 2022-05-01 15:13 | disposition home or self-care (01) | LOC: LBN 15:12 | PROVIDERS: PCP Family Medicine; Visit Provider Nurse Practitioner Gerontology | DX: R30.0 Dysuria (principal); R39.89 Other symptoms and signs involving the genitourinary system; N40.1 Benign prostatic hyperplasia with lower urinary tract symptoms; N13.8 Other obstructive and reflux uropathy | CPT/HCPCS: 87086 ==

== ENCOUNTER → 2022-07-05 08:51 | Outpatient (BNVA) | payer MEDICARE, SELFPAY | PROVIDERS: PCP Family Medicine; Referring Provider Family Medicine; Visit Provider Urology | DX: C67.9 Malignant neoplasm of bladder, unspecified (principal) | CPT/HCPCS: 52000; 81003 ==

== ENCOUNTER → 2022-08-22 08:54 | Outpatient (BNVA) | payer MEDICARE, SELFPAY | PROVIDERS: PCP Family Medicine; Referring Provider Family Medicine; Visit Provider Physical Therapy Assistant | DX: Z12.11 Encounter for screening for malignant neoplasm of colon (principal) ==

== ENCOUNTER 2022-12-11 16:00 | Outpatient (REF) | payer MEDICARE, SELFPAY ==
[2022-12-11 16:22] LABS: Anion Gap 12.5 mmol/L (3-11); BUN 13 mg/dL (7-18); CO2 24.5 mmol/L (21.0-32.0); CREATININE 0.8 mg/dL (0.70-1.30); Calcium 9.4 mg/dL (8.5-10.1); Chloride 103 mmol/L (98-107); Estimated GFR 92.87 (mL/min/1.73m2); Glucose 159 mg/dL (74-106); Potassium 4.5 mmol/L (3.5-5.1); Sodium 140 mmol/L (136-145)
[2022-12-11 17:05] LABS: Hemoglobin A1C 7.6 % (<5.7)
== END 2022-12-11 16:01 | disposition home or self-care (01) ==
LOC: NCHCN 16:00
PROVIDERS: PCP Family Medicine; Visit Provider Family Medicine
DX: R73.9 Hyperglycemia, unspecified (principal); I10 Essential (primary) hypertension
CPT/HCPCS: 80048; 83036

== ENCOUNTER → 2023-01-03 08:40 | Outpatient (BNVA) | payer MEDICARE, SELFPAY | PROVIDERS: PCP Family Medicine; Visit Provider Urology | DX: C67.9 Malignant neoplasm of bladder, unspecified (principal) | CPT/HCPCS: 52000; 81003 ==

== ENCOUNTER → 2023-01-10 00:08 | Outpatient (CLI) | payer MEDICARE, SELFPAY ==
--- NOTE | 2023-01-10 13:00 | DI.CTLCSR_ITS ---
Exam(s) CT CHEST LUNG CANCER SCREEN EXAM: CT CHEST LUNG CANCER SCREEN CLINICAL HISTORY: SMOKER F17.210, [facility] Z00.00 TECHNIQUE: Imaging Protocol: Axial computed tomography images with coronal and sagittal reformatted images were created and reviewed COMPARISON: CT CT CHEST LUNG CANCER SCREEN from 01/04/2022 FINDINGS: Tracheobronchial tree: Patent where visualized. Pulmonary parenchyma: No consolidation or dominant measurable mass. No architectural distortion. Lung Nodules: No noncalcified pulmonary nodules. Mediastinum and Siobhan: No dominant adenopathy or fluid collection. The esophagus is unremarkable.There is a small hiatal hernia. Thyroid gland: Unremarkable. Lymph nodes: Unremarkable. Pleura: No effusion or pneumothorax. Heart: The heart is not dilated. Coronary artery calcification and/or stents are present. No pericar dial effusion. Aorta: Thoracic aorta non-dilated.Atherosclerosis is present. Upper abdomen: Unremarkable. Soft Tissues: Unremarkable. Bones: Within normal limits. IMPRESSION: No pulmonary nodules. Lung RADS Cat 1 - Negative: No nodules and definitely benign nodules Lung-RADS 1.0 CATEGORIES: Category 0 - Prior chest CT exam(s) being located for comparison. Category 1 - Annual screening in 12 months. No nodules or definitely benign nodules. Category 2 - Annual screening in 12 months. Benign appearance. Nodules with low likelihood of becomin g active cancer. Category 3 - 6-month follow-up. Probably benign. Short-term follow-up suggested. Nodules with low lik elihood of becoming active cancer. Category 4A - 3-month follow-up and CT/PET if >8 mm in size. Suspicious finding. Findings which requi re additional testing. Category 4B - Findings which require additional testing and tissue sampling. Suspicious finding. Category 4X - Category 3 or 4 nodules with additional features or imaging findings that increases the suspicion of malignancy. Modifier S- Potentially clinically significant finding. (Non lung cancer) RADIATION DOSE DELIVERED: Total DLP Total DLP DATA REPOSITORY: All CT scans at this facility are submitted to the National Radiology Data Registry (NRDR) Dose Index Registry (DIR) with the [employer] (ACR). RADIATION OPTIMIZATION: All CT scans at this facility use at least one of these dose optimization te chniques: automated exposure control; mA and/or kV adjustment per patient size (includes targeted exa ms where dose is matched to clinical indication); or iterative reconstruction.
== END ==
PROVIDERS: PCP Family Medicine; Visit Provider Family Medicine
DX: F17.210 Nicotine dependence, cigarettes, uncomplicated (principal); Z12.2 Encounter for screening for malignant neoplasm of respiratory organs
CPT/HCPCS: 71271

== ENCOUNTER 2023-02-24 07:16 | Day surgery (SDC) | payer MEDICARE, SELFPAY ==
--- NOTE | 2023-02-24 06:29 | W.ANESPRE ---
General Info Date of Service Date Performed: 02/24/23 Height: 5 ft 11 in Weight: 87.09 kg Body Mass Index (BMI): 26.7 Surgical Procedure: Operation Date: 02/24/23 09:25 Proposed Procedure Side Surgeon p Cystoscopy w/Transurethral Resection Bladder Tumor Carter Ireland MD Meds Allergies and Home Medications Allergies Allergy/AdvReac Type Severity Reaction Status Date / Time mussels Allergy Severe Anaphylaxis Unverified 02/24/23 07:40 Iodinated Contrast Media Allergy Verified 02/24/23 07:40 Home Medication Medication Instructions Recorded albuterol sulfate 90 mcg/actuation 2 puff inhalation Q4H PRN 12/20/20 aerosol inhaler budesonide-formoterol HFA 80 2 puff inhalation DAILY 12/20/20 mcg-4.5 mcg/actuation aerosol inhaler cyclobenzaprine 10 mg tablet 10 mg PO TID PRN 12/20/20 lisinopril 10 mg tablet 10 mg PO DAILY 12/20/20 acetaminophen 500 mg tablet 1,000 mg PO Q6H PRN 01/17/22 (Tylenol Extra Strength) varenicline 0.5 mg (11)-1 mg (42) See Rx Instructions PO PER PKG DIR 01/17/22 tablets in a dose pack Current Visit Medications: Current Medications Generic Name Dose Route Start Last Admin Trade Name Freq PRN Reason Stop Dose Admin Ringer's Solution 1,000 mls @ 80 mls/hr 02/24/23 06:00 IV 02/24/23 23:59 INFUSION BRYON Gentamicin Sulfate 160 mg/ 104 mls @ 208 mls/hr 02/24/23 06:00 Sodium Chloride IVPB 02/24/23 16:00 PREOP BRYON IV Miscellaneous Supplies 1 each 02/24/23 06:00 Iv Access IV 02/24/23 23:59 DIRECTED BRYON Sodium Chloride 0 ml 02/24/23 06:00 Normal Saline Flush 10 Ml Syr IV 02/24/23 23:59 PRN PRN Sodium Chloride 0 ml 02/24/23 06:00 Normal Saline 10 Ml Vial IJ 02/24/23 23:59 DIRECTED PRN Sterile Water 0 ml 02/24/23 06:00 Water,Injection,Sterile 10 Ml Vial IJ 02/24/23 23:59 DIRECTED PRN PFSH Active Problems Active Problems: Problem Status Onset Code BPH w urinary obs/LUTS N40.1, N13.8 Primary bladder malignant neoplasm C67.9 Medical History Medical History COVID-19 01/2020-Asymptomatic COPD (chronic obstructive pulmonary disease) Essential hypertension Smoker Tachycardia Gross hematuria Surgical History Surgical History History of transurethral resection of bladder tumor (TURBT) 03/22/2022 Hx of tonsillectomy Tobacco Smoking/Tobacco Use Status: Current every day Tobacco Type: cigarettes Alcohol Alcohol Intake: current Alcohol intake frequency: a few times a week Substance Use Substance use: Never Substance use type: does not use Vital Signs and Lab Results Vital Signs Most Recent Vital Signs in EMR: Temp Pulse Resp BP Pulse Ox 36.3 C L 104 H 20 150/74 H 96 02/24/23 07:25 02/24/23 07:25 02/24/23 07:25 02/24/23 07:25 02/24/23 07:25 Lab Results Blood Type / Crossmatch: No Data to Display Complete Blood Count: No Data to Display Complete Metabolic Panel: No Data to Display Liver Function Panel: No Data to Display Coagulation Panel: No Data to Display Cardiac Panel: No Data to Display Arterial Blood Gas: No Data to Display Venous Blood Gas: No Data to Display Pancreas Panel: No Data to Display Thyroid Panel: No Data to Display Infectious Disease: No Data to Display Blood Cultures: No Data to Display Toxicology Panel: No Data to Display Anesthesia Assessment and Plan Anesthesia History Personal History: No History of Anesthesia Complications Family History: No Family History of Anesthesia Complications Exercise Tolerance Exercise Tolerance: Metabolic Equivalents>4 Cardiac & Pulmonary Exam Cardiac Exam: Normal S1/S2 Heart Sounds Pulmonary Exam: Clear Bilateral Breath Sounds Implantable Cardiac Device Does patient have a Pacemaker or an ICD?: No Airway Exam Known Difficult Airway: Yes Mallampati Class: 2 Mouth Opening: Normal (> 3cm) Thyromental Distance: Greater than 3 cm Neck Range of Motion: Full ROM and Limited ROM Neck Circumference: Thick Teeth Condition: Normal Dentition ASA Classification ASA Score: ASA 2 Emergency Case?: No NPO Status NPO Status: NPO Clears >2 hours, Solids >8 hours Anesthesia Plan Resuscitation Status: Full Code Anesthesia Technique: General Anesthesia Airway Planned: LMA Monitors Used: Standard Monitors Preoperative Comments:: 70 yo male for TURBT. Sig PMHx: COPD (albuterol, breathing feels great today), HTN (lisinopril), smoker. Previous Anes: - cysto, sevo/prop/dexmed, igel 4 (supreme failed), required albuterol and phenyl. - cysto, prop, natural airway, no issues.
[2023-02-24 07:25] VITALS: BP 150/74; PULSE 104; RESP 20; TEMP 36.3; O2SAT 96
[2023-02-24 08:05] VITALS: BMI 26.7
[2023-02-24] MEDS: Lactated Ringers 1,000 ML 80 ML IV (08:10)
--- NOTE | 2023-02-24 08:53 | W.PM.HP.N ---
Date of service: 02/24/23 Time of Service: 08:53 Assessment and Plan Assessment and plan (1) Primary bladder malignant neoplasm: Status: Acute Assessment and plan: We will plan a cystoscopy and transurethral resection of his visible bladder tumors. History of Present Illness History of Present Illness Chief Complaint: Bladder cancer Narrative: This is a 72-year-old gentleman who has a history of low-grade, noninvasive urothelial cell carcinoma of the bladder. His initial diagnosis was made in March 2021. On his most recent surveillance cystoscopy, we found small papillary lesions on the posterior bladder wall. He presents now for transurethral resection of these lesions. Previously, he was not able to tolerate intravesical chemotherapy given in the perioperative period. He developed orchitis when the chemotherapy was utilized. We have elected not to instill mitomycin or gemcitabine after the procedure today. Review of Systems Narrative: No fevers or chills No vision change or dysphasia No diabetes or thyroid COPD. No hemoptysis No chest pain or palpitations No nausea, vomiting, hepatitis, ulcers, jaundice No seizures, strokes or peripheral neuropathy No bleeding disorders or anemia No gout PFSH All Active Problems BPH w urinary obs/LUTS (Acute) Primary bladder malignant neoplasm (Acute) Medical History COVID-19 01/2020-Asymptomatic COPD (chronic obstructive pulmonary disease) Essential hypertension Smoker Tachycardia Gross hematuria Surgical History History of transurethral resection of bladder tumor (TURBT) 03/22/2022 Hx of tonsillectomy Social History Smoking/Tobacco Use Status: Current every day Tobacco Type: cigarettes Smoking risk assessment performed?: Yes Alcohol Intake: current Alcohol Intake frequency: a few times a week Drug use: Never Substance use type: does not use Housing: house Do you feel safe at home: Yes Do you feel safe in your relationship?: Yes Additional Social history: Daughter and family lives with patient Meds Allergies and Home Medications Allergies Allergy/AdvReac Type Severity Reaction Status Date / Time mussels Allergy Severe Anaphylaxis Unverified 02/24/23 07:40 Iodinated Contrast Media Allergy Verified 02/24/23 07:40 Home Medications Medication Instructions Recorded Confirmed Type albuterol sulfate 90 mcg/actuation 2 puff inhalation Q4H PRN 12/20/20 02/24/23 History aerosol inhaler budesonide-formoterol HFA 80 2 puff inhalation DAILY 12/20/20 02/24/23 History mcg-4.5 mcg/actuation aerosol inhaler cyclobenzaprine 10 mg tablet 10 mg PO TID PRN 12/20/20 02/24/23 History lisinopril 10 mg tablet 10 mg PO DAILY 12/20/20 02/24/23 History acetaminophen 500 mg tablet 1,000 mg PO Q6H PRN 01/17/22 02/24/23 History (Tylenol Extra Strength) varenicline 0.5 mg (11)-1 mg (42) See Rx Instructions PO PER PKG DIR 01/17/22 02/24/23 History tablets in a dose pack Exam Const General: cooperative Resp Effort & Inspection: normal respiratory effort Auscultation: clear to auscultation bilaterally Cardio Rate: regular rate Rhythm: regular rhythm GI Palpation: soft and no masses Neuro General: patient alert, patient awake and patient oriented x3 Results Last Vital Signs Temp 36.3 C L 02/24/23 07:25 Pulse 104 H 02/24/23 07:25 Resp 20 02/24/23 07:25 BP 150/74 H 02/24/23 07:25 Pulse Ox 96 02/24/23 07:25 Time Spent Time spent with Patient: <40 minutes Time was spent: other
[2023-02-24] MEDS: GENTAMICIN 160 MG in Normal Saline 100 ML 208 MG IVPB (09:20)
[2023-02-24] MEDS: Lidocaine 2% Jelly 6 ML SYR (09:38)
[2023-02-24] MEDS: Chlorhexidine 4% 120 ML BTL TP (09:45)
--- NOTE | 2023-02-24 09:45 | BLADDER_PTH ---
PATIENT: Isaac Pascal LOC: [facility] U#:[id number] AGE/SX: 72/M ROOM: RE02/24/[address]: Carter Ireland MD : 1950 BED: DIS: 02/24/2023 SPEC #: [id number] RECD: 02/24/23 12:03 STATUS: ANABELA REQ #: [id number] JAMA: 02/24/23 09:[address]: Carter Ireland DEPT: Surgical Specimen RECD BY: Kelly Huertas ENTERED: 02/24/23 12:04 SP TYPE: Bladder OTHR DR: Joe Caban Tissues: 1 - BLADDER BIOPSY Procedures: GROSS AND MICRO LEVEL 5 Comments: [id number]
--- NOTE | 2023-02-24 09:49 | W.PM.DSUDISC ---
Date of service: 02/24/23 Time of Service: 09:49 Discharge Plan Disposition Patient Disposition: Home Condition: Stable Discharge Details Reason For Visit: transurethral resection of bladder tumor Attending Provider: Carter Ireland Primary Care Provider: Joe Caban Home Meds and New Rx's Prescriptions: No Action albuterol sulfate 90 mcg/actuation HFA aerosol inhaler 2 puff inhalation Q4H PRN budesonide-formoterol 80-4.5 mcg/actuation HFA aerosol inhaler 2 puff inhalation DAILY lisinopril 10 mg tablet 10 mg PO DAILY cyclobenzaprine 10 mg tablet 10 mg PO TID PRN varenicline 0.5 mg (11)- 1 mg (42) tablets,dose pack See Rx Instructions PO PER PKG DIR Rx Instructions: PO PER PKG DIR acetaminophen [Tylenol Extra Strength] 500 mg tablet 1,000 mg PO Q6H PRN Discharge Instructions Additional Instructions: followup 2 weeks (in person or telehealth is OK) to review pathology results Activity:: Activity as Tolerated Shower/Bathe:: 24 hours Diet:: As Tolerated Discharge Orders Discharge Orders: Discharge Order (Routine); Ordered 02/24/23 Ordered By: Carter Ireland DS: Diagnosis Discharge Diagnosis (1) Primary bladder malignant neoplasm: Status: Acute
--- NOTE | 2023-02-24 09:52 | W.PM.OP ---
Date of service: 02/24/23 Time of Service: 09:52 Operative Note Operative Note DATE OF PROCEDURE: 02/24/23 PRE-OP DIAGNOSIS: Bladder tumor POST-OP DIAGNOSIS: same PROCEDURE: cystoscopy with Transurethral resection bladder tumors (< 2 cm) SURGEON: Carter Ireland ANESTHESIA TYPE: Local By Surgeon and General:No Airway Refer to Anesthesia Record ESTIMATED BLOOD LOSS: 5 PATHOLOGY: other (bladder tumor) COMPLICATIONS: None Patient was transported to: same day Patient's condition: stable Implants: none Indications: This is a 72-year-old gentleman who has a history of low-grade, noninvasive urothelial cell carcinoma of the bladder. On his recent surveillance cystoscopy, we identified multiple recurrent tumors. He presents for transurethral resection. Findings: two small papillary tumors on posterior bladder wall, small papillary tumor left lateral wall Procedure Description: The patient was given preoperative antibiotics and brought to the operating room on 02/24/2023. After successful induction of general anesthesia, he was placed in the dorsal lithotomy position. His genitalia was prepped and draped. 2% Xylocaine jelly was instilled into the urethra to act as a local anesthetic. A 26 [place] resectoscope sheath was passed through the urethra into the bladder. The urethra was inspected using a 30 degree lens and the visual obturator. The pendulous, bulbar and membranous urethra's appeared normal with no strictures. The prostatic urethra showed some lateral lobe enlargement. The bladder neck was entered and the bladder mucosa was inspected. On the posterior bladder wall, we identified 2 papillary lesions that measured less than 2 cm in largest dimension. On the left lateral bladder wall, a smaller papillary lesion was identified. We then utilized bipolar cautery in the [employer] resectoscope to do a transurethral resection of one of the posterior wall tumors. All other visible tumor was treated with fulguration. Once all tumor had been resected and cauterized, the bladder was drained and the resectoscope was removed. The patient tolerated the procedure with no complications. He was taken back to the day surgery unit in stable condition.
[2023-02-24 10:00] VITALS: BP 118/74; PULSE 78; RESP 16; TEMP 36.1; O2SAT 97
[2023-02-24] MEDS: Phenazopyridine 200 MG TAB PO (10:32)
[2023-02-24 11:00] VITALS: BP 155/88; PULSE 94; RESP 16; TEMP 36; O2SAT 98
--- NOTE | 2023-02-24 11:03 | W.ANESPOSTOP ---
Postoperative Evaluation Date, Time and Location Date Performed: 02/24/23 Time Performed: 11:03 Patient Location: Day Surgery Unit Vital Signs Most Recent Imported Vital Signs: Most Recent Vital Signs Temp Pulse Resp BP Pulse Ox 36.1 C L 78 16 118/74 97 02/24/23 10:00 02/24/23 10:00 02/24/23 10:00 02/24/23 10:00 02/24/23 10:00 Pain Score Most Recent Pain Score: Most Recent Pain Score Pain Level 0 02/24/23 10:00 Assessment Mental Status: Awake (Alert & Oriented to Patient Baseline) Airway and Respiratory Function: Patent airway with normal (patient baseline) respiratory exam Cardiovascular Function: Hemodynamically Stable Hydration Status: Adequately Hydrated Nausea & Vomiting: No Nausea or Vomiting Pain: Pain is tolerable per patient Peripheral Nerve Block: Patient did not receive a nerve block
== END 2023-02-24 11:20 | disposition home or self-care (01) ==
PROVIDERS: PCP Family Medicine; Visit Provider Urology
PROC: 0TBB8ZZ Excision of Bladder, Via Natural or Artificial Opening Endoscopic (ICD-10-PCS; CPT 52234; principal; 2023-02-24 09:15)
DX: C67.2 Malignant neoplasm of lateral wall of bladder (principal); C67.4 Malignant neoplasm of posterior wall of bladder; I10 Essential (primary) hypertension; F17.210 Nicotine dependence, cigarettes, uncomplicated; Z79.899 Other long term (current) drug therapy
CPT/HCPCS: 52234; 88305; 88307; J0131; J1100; J1580; J2371; J2405; J2704

== ENCOUNTER → 2023-03-11 16:03 | Outpatient (BNVA) | payer MEDICARE, SELFPAY | PROVIDERS: PCP Family Medicine; Referring Provider Family Medicine; Visit Provider Urology | DX: C67.9 Malignant neoplasm of bladder, unspecified (principal); R35.1 Nocturia | CPT/HCPCS: 99442 ==

== ENCOUNTER → 2023-07-01 08:46 | Outpatient (BNVA) | payer MEDICARE, SELFPAY | PROVIDERS: PCP Family Medicine; Referring Provider Family Medicine; Visit Provider Urology | DX: C67.9 Malignant neoplasm of bladder, unspecified (principal); N40.1 Benign prostatic hyperplasia with lower urinary tract symptoms; N13.8 Other obstructive and reflux uropathy | CPT/HCPCS: 52000; 81003 ==

== ENCOUNTER → 2023-07-15 00:07 | Outpatient (CLI) | payer MEDICARE, SELFPAY ==
--- NOTE | 2023-07-15 | DI.US_ITS ---
APPROVED REPORT EXAM: Comprehensive 2D, Doppler, and color-flow Echocardiogram Patient Location: Out-Patient Assisted Sales Representative: Yoanna Georges RT (R) (CT) RD Rhythm: Tachycardia Indications: Abnormal EKG, h/o COPD, RBBB, right atrial enlargement, old inferior infarct. Other Information Study Quality: Technically Difficult Conclusion Normal left ventricular wall thickness and chamber size. Ejection fraction is 60%. Wall motion is n ormal Mildly enlarged right ventricle with preserved systolic function Both atria are normal in size There is no structural or hemodynamically significant valvular disease Estimated right ventricular systolic pressure is 23 mmHg Wall motion Left Ventricle The left ventricle is normal size. The left ventricular systolic function is normal. The left ventric ular ejection fraction is within the normal range. There is normal left ventricular wall thickness. T here is paradoxical septal motion. The left ventricular diastolic function is normal. There is no meagan tricular septal defect visualized. No left ventricle thrombus noted on this study. LVEF is 60%. Right Ventricle Right ventricle is mildly dilated. RV function is preserved Moderator band is seen in the right ventr icle. Atria The left atrium size is normal. The right atrium size is normal. The interatrial septum is intact wit h no evidence for an atrial septal defect. Aortic Valve Aortic valve is trileaflet, best seen subcostally. There is no aortic valvular stenosis. No aortic re gurgitation is present. Mitral Valve The mitral valve is normal in structure. No evidence of mitral valve stenosis. There is no mitral ralf ve regurgitation noted. Tricuspid Valve The tricuspid valve is normal in structure. There is no tricuspid valve stenosis. Trace tricuspid reg urgitation. The RVSP is 23 mmHg. Pulmonic Valve The pulmonary valve is normal in structure. There is no pulmonic valvular stenosis. There is no pulmo dimitris valvular regurgitation. Great Vessels The aortic root is normal in size. The pulmonary artery is normal. The ascending aorta is normal in s ize. Aortic arch is not well visualized. IVC is normal in size and collapses >50% with inspiration. Pericardium Prominent anterior epicardial fat pad is present. There is no pleural effusion. 2D Dimensions IVSD d PLAX 1.04 cm M: 0.6-1.2 Ao Root d 2.92 cm M: 3.1 - 3.7 LVPW d PLAX 0.99 cm M: 0.6 - 1.2 Ao Asc Diam d 2.98 cm M: 2.6 - 3.4 LVID d PLAX 3.32 cm M: 4.2 - 5.8 IVC Diam exp d SLAX 1.6 cm LVDs 2.25 cm M: 2.5 - 4.0 LV EF Teichholz 61.7 % FS 32.24 % LV EDV (Teich) 44.7 mL LV ESV (Teich) 17.1 mL LA Volume LA Length A4C 4.2 cm LA Length A2C 4.0 cm LA Area A4C s 7.57 cm2 LA Area A2C s 10.97 cm2 LA Vol A4C A-L 11.45 mL LA Vol A2C A-L 25.51 mL LA Vol Biplane A-L 17.6 mL LA Vol/BSA A4C A-L LA Vol/BSA A2C A-L LA Vol/BSA BP A-L 8.5 mL/m2 LA Vol A4C MOD 10.5 mL LA Vol A2C MOD 24.8 mL LA Vol BP MOD 16.3 mL LV Diastology MV E' medial 0.070 (>0.07 m/s) MV E Vmax 0.70 (0.4-1.3 m/s) MV E/E' MED 9.97 (<14) MV A Vmax 0.70 (0.4-1.3 m/s) MV E' lateral 0.074 (>0.1 m/s) E/A Ratio 1.0 MV E/E' LAT 9.48 (<14) MV E' Average 0.072 m/s MV E/E'(average) 9.72 Aortic Valve LVOT Vmax 0.85 m/s LVOT Peak Grad 2.9 mmHg LVOT VTI 0.148 m LVOT Mean Grad 1.3 mmHg LVOT SV 58.75 mL LVOT Diam s 2.20 cm Mitral Valve MV DT 135 (160-240 msec) Pulmonary Valve RVOT Vmax 0.57 m/s RVOT Peak Gr. 1.3 mmHg RVOT VTI 0.087 m RVOT Mean Gr. 0.7 mmHg Tricuspid Valve RA Pressure 3.00 mmHg TR Vmax 2.25 m/s TV S' 0.12 m/s TR Peak Grad 20.2 mmHg RVSP (TR) 23.2 mmHg
== END ==
PROVIDERS: PCP Student in an Organized Health Care Education/Training Program; Visit Provider Student in an Organized Health Care Education/Training Program
DX: R94.31 Abnormal electrocardiogram [ECG] [EKG] (principal); I45.10 Unspecified right bundle-branch block; I51.7 Cardiomegaly; I25.2 Old myocardial infarction; I36.1 Nonrheumatic tricuspid (valve) insufficiency
CPT/HCPCS: 93306

== ENCOUNTER 2023-09-15 06:06 | Day surgery (SDC) | payer MEDICARE, SELFPAY ==
--- NOTE | 2023-09-15 05:49 | W.ANESPRE ---
General Info Date of Service Date Performed: 09/15/23 Height: 5 ft 11 in Weight: 88.8 kg Body Mass Index (BMI): 27.3 Surgical Procedure: Operation Date: 09/15/23 07:40 Proposed Procedure Side Surgeon p Cystoscopy w/Transurethral Resection Bladder Tumor Carter Ireland MD Meds Allergies and Home Medications Allergies Allergy/AdvReac Type Severity Reaction Status Date / Time mussels Allergy Severe Anaphylaxis Verified 09/15/23 06:23 Iodinated Contrast Media Allergy Anaphylaxis Verified 09/15/23 06:23 Home Medication ?Medication ?Instructions ?Recorded albuterol sulfate 90 mcg/actuation 2 puff inhalation Q4H PRN 12/20/20 aerosol inhaler budesonide-formoterol HFA 80 2 puff inhalation DAILY 12/20/20 mcg-4.5 mcg/actuation aerosol inhaler cyclobenzaprine 10 mg tablet 10 mg PO TID PRN 12/20/20 lisinopril 10 mg tablet 10 mg PO DAILY 12/20/20 acetaminophen 500 mg tablet 1,000 mg PO Q6H PRN 01/17/22 (Tylenol Extra Strength) varenicline 0.5 mg (11)-1 mg (42) See Rx Instructions PO PER PKG DIR 01/17/22 tablets in a dose pack atorvastatin 10 mg tablet 10 mg PO DAILY 07/01/23 metformin 500 mg tablet 500 mg PO DAILY 07/01/23 Dulera PRN 09/15/23 mometasone-formoterol HFA 100 inhalation 09/15/23 mcg-5 mcg/actuation aerosol inhaler (Dulera) tamsulosin 0.4 mg capsule mg PO 09/15/23 Current Visit Medications: Current Medications Generic Name Dose Route Start Last Admin Trade Name Freq PRN Reason Stop Dose Admin Ringer's Solution 1,000 mls @ 80 mls/hr 09/15/23 06:00 IV 09/15/23 23:59 INFUSION BRYON Gentamicin Sulfate 160 mg/ 104 mls @ 208 mls/hr 09/15/23 06:00 Sodium Chloride IVPB 09/15/23 23:59 PREOP BRYON IV Miscellaneous Supplies 1 each 09/15/23 06:00 Iv Access IV 09/15/23 23:59 DIRECTED BRYON Sodium Chloride 0 ml 09/15/23 06:00 Normal Saline Flush 10 Ml Syr IV 09/15/23 23:59 PRN PRN Sodium Chloride 0 ml 09/15/23 06:00 Normal Saline 10 Ml Vial IJ 09/15/23 23:59 DIRECTED PRN Sterile Water 0 ml 09/15/23 06:00 Water,Injection,Sterile 10 Ml Vial IJ 09/15/23 23:59 DIRECTED PRN PFSH Active Problems Active Problems: Problem Status Onset Code BPH w urinary obs/LUTS Acute N40.1, N13.8 Primary bladder malignant neoplasm Acute C67.9 Medical History Medical History COVID-19 01/2020-Asymptomatic COPD (chronic obstructive pulmonary disease) Essential hypertension Smoker Tachycardia Gross hematuria Surgical History Surgical History History of transurethral resection of bladder tumor (TURBT) 03/22/2022 Hx of tonsillectomy Tobacco Smoking/Tobacco Use Status: Current every day Tobacco Type: cigarettes Alcohol Alcohol Intake: current Alcohol intake frequency: holidays/special occasions only Substance Use Substance use: Never Substance use type: does not use Vital Signs and Lab Results Vital Signs Comment Vital Signs Comment:: Temp Pulse Resp BP Pulse Ox 36.2 C L 94 H 16 121/71 94 09/15/23 06:15 09/15/23 06:15 09/15/23 06:15 09/15/23 06:15 09/15/23 06:15 Point of Care Results Point of Care Results: Finger Stick Blood Glucose 126 09/15/23 07:03 Lab Results Blood Type / Crossmatch: No Data to Display Complete Blood Count: No Data to Display Complete Metabolic Panel: No Data to Display Liver Function Panel: No Data to Display Coagulation Panel: No Data to Display Cardiac Panel: No Data to Display Arterial Blood Gas: No Data to Display Venous Blood Gas: No Data to Display Pancreas Panel: No Data to Display Thyroid Panel: No Data to Display Infectious Disease: No Data to Display Blood Cultures: No Data to Display Toxicology Panel: No Data to Display Imaging and Studies Imaging and Studies Study information below may be from another EMR and interpreted by another provider. Please see original notes in EMR for more complete details. Echocardiogram Summary: 07/15/23 Conclusion Normal left ventricular wall thickness and chamber size. Ejection fraction is 60%. Wall motion is normal Mildly enlarged right ventricle with preserved systolic function Both atria are normal in size There is no structural or hemodynamically significant valvular disease Estimated right ventricular systolic pressure is 23 mmHg Anesthesia Assessment and Plan Anesthesia History Personal History: No History of Anesthesia Complications Family History: No Family History of Anesthesia Complications Exercise Tolerance Exercise Tolerance: Metabolic Equivalents>4 Pertinent Negatives Pertinent Negatives: No Symptoms of GERD, No Major Cardiovascular Symptoms or Complaints and No Major Pulmonary Symptoms or Complaints Cardiac & Pulmonary Exam Cardiac Exam: Normal S1/S2 Heart Sounds Pulmonary Exam: Clear Bilateral Breath Sounds Cardiac and Pulmonary Comment:: Used inhaler this am, lungs clear, continues to smoke Implantable Cardiac Device Does patient have a Pacemaker or an ICD?: No Airway Exam Known Difficult Airway: No Mallampati Class: 2 Mouth Opening: Normal (> 3cm) Thyromental Distance: Greater than 3 cm Neck Range of Motion: Full ROM Neck Circumference: Thick Teeth Condition: Normal Dentition ASA Classification ASA Score: ASA 2 Emergency Case?: No NPO Status NPO Status: NPO Clears >2 hours, Solids >8 hours Anesthesia Plan Resuscitation Status: Full Code Anesthesia Technique: General Anesthesia Airway Planned: Natural Airway Monitors Used: Standard Monitors
[2023-09-15 06:15] VITALS: BP 121/71; PULSE 94; RESP 16; TEMP 36.2; O2SAT 94
[2023-09-15] MEDS: Lactated Ringers 1,000 ML 80 ML IV (07:00)
--- NOTE | 2023-09-15 07:09 | W.PM.HP.N ---
Date of service: 09/15/23 Time of Service: 07:09 Assessment and Plan Assessment and plan (1) Primary bladder malignant neoplasm: Status: Acute Assessment and plan: For cystoscopy and TUR bladder tumor History of Present Illness History of Present Illness Chief Complaint: Bladder cancer Narrative: This is a 73-year-old gentleman who has a history of urothelial cell carcinoma of the bladder. His initial tumor was found in March 2021. His tumors have been low-grade and noninvasive but his initial tumor did show some areas of high-grade tumor. His most recent occurrence was in February of 2023. He presents for surveillance cystoscopy. He has no gross hematuria. He did develop orchitis following his TUR bladder tumor and instillation of chemotherapy into the bladder. He has had no such issues with the surveillance cystoscopies After his most recent cystoscopy and transurethral resection of bladder tumor, he had worsening of his lower urinary tract symptoms. I gave him a prescription of tamsulosin to use but he was unable to tolerate medication due to tachycardia. He was found to have a recurrent tumor on surveillance cystoscopy. He presents for transurethral resection of his visible bladder tumor Review of Systems Narrative: No fevers or chills No vision change or dysphasia No diabetes or thyroid No shortness of breath, cough or hemoptysis No chest pain or palpitations No nausea, vomiting, hepatitis, ulcers, jaundice No seizures, strokes or peripheral neuropathy No bleeding disorders or anemia No gout PFSH All Active Problems BPH w urinary obs/LUTS (Acute) Primary bladder malignant neoplasm (Acute) Medical History COVID-19 01/2020-Asymptomatic COPD (chronic obstructive pulmonary disease) Essential hypertension Smoker Tachycardia Gross hematuria Surgical History History of transurethral resection of bladder tumor (TURBT) 03/22/2022 Hx of tonsillectomy Social History Smoking/Tobacco Use Status: Current every day Tobacco Type: cigarettes Smoking risk assessment performed?: Yes Alcohol Intake: current Alcohol Intake frequency: holidays/special occasions only Drug use: Never Substance use type: does not use Housing: house Do you feel safe at home: Yes Do you feel safe in your relationship?: Yes Meds Allergies and Home Medications Allergies Allergy/AdvReac Type Severity Reaction Status Date / Time mussels Allergy Severe Anaphylaxis Verified 09/15/23 06:23 Iodinated Contrast Media Allergy Anaphylaxis Verified 09/15/23 06:23 Home Medications ?Medication ?Instructions ?Recorded ?Confirmed ?Type albuterol sulfate 90 mcg/actuation 2 puff inhalation Q4H PRN 12/20/20 09/15/23 History aerosol inhaler budesonide-formoterol HFA 80 2 puff inhalation DAILY 12/20/20 09/15/23 History mcg-4.5 mcg/actuation aerosol inhaler cyclobenzaprine 10 mg tablet 10 mg PO TID PRN 12/20/20 09/15/23 History lisinopril 10 mg tablet 10 mg PO DAILY 12/20/20 09/15/23 History acetaminophen 500 mg tablet 1,000 mg PO Q6H PRN 01/17/22 09/15/23 History (Tylenol Extra Strength) varenicline 0.5 mg (11)-1 mg (42) See Rx Instructions PO PER PKG DIR 01/17/22 09/12/23 History tablets in a dose pack atorvastatin 10 mg tablet 10 mg PO DAILY 07/01/23 09/15/23 History metformin 500 mg tablet 500 mg PO DAILY 07/01/23 09/15/23 History Dulera PRN 09/15/23 History mometasone-formoterol HFA 100 inhalation 09/15/23 History mcg-5 mcg/actuation aerosol inhaler (Dulera) tamsulosin 0.4 mg capsule mg PO 09/15/23 History Exam Const General: cooperative and comfortable Neck Neck: supple Resp Auscultation: clear to auscultation bilaterally Cardio Rate: regular rate Rhythm: regular rhythm GI Palpation: soft and no masses Neuro General: patient alert, patient awake and patient oriented x3 Results Last Vital Signs Temp 36.2 C L 09/15/23 06:15 Pulse 94 H 09/15/23 06:15 Resp 16 09/15/23 06:15 BP 121/71 09/15/23 06:15 Pulse Ox 94 09/15/23 06:15 Time Spent Time spent with Patient: <40 minutes Time was spent: other
[2023-09-15 07:15] VITALS: BMI 27.3
[2023-09-15] MEDS: GENTAMICIN 160 MG in Normal Saline 100 ML 208 MG IVPB (07:32)
[2023-09-15] MEDS: Lidocaine 2% Jelly 6 ML SYR (07:59)
--- NOTE | 2023-09-15 08:05 | BLADDER_PTH ---
PATIENT: Isaac Pascal LOC: [facility] U#:[id number] AGE/SX: 73/M ROOM: RE09/15/[address]: Carter Ireland MD : 1950 BED: DIS: 09/15/2023 SPEC #: [id number] RECD: 09/15/23 11:57 STATUS: ANABELA REQ #: [id number] JAMA: 09/15/23 08:[address]: Carter Ireland DEPT: Surgical Specimen RECD BY: Kelly Huertas ENTERED: 09/15/23 12:00 SP TYPE: Bladder OTHR DR: Benton Blancas Tissues: 1 - BLADDER BIOPSY Procedures: GROSS AND MICRO LEVEL 5 Comments: [id number]
--- NOTE | 2023-09-15 08:19 | W.PM.DSUDISC ---
Date of service: 09/15/23 Time of Service: 08:19 Discharge Plan Disposition Patient Disposition: Home Discharge Details Reason For Visit: bladder tumor Attending Provider: Carter Ireland Primary Care Provider: Benton Blancas Home Meds and New Rx's Prescriptions: No Action atorvastatin 10 mg tablet 10 mg PO DAILY metformin 500 mg tablet 500 mg PO DAILY albuterol sulfate 90 mcg/actuation HFA aerosol inhaler 2 puff inhalation Q4H PRN budesonide-formoterol 80-4.5 mcg/actuation HFA aerosol inhaler 2 puff inhalation DAILY lisinopril 10 mg tablet 10 mg PO DAILY cyclobenzaprine 10 mg tablet 10 mg PO TID PRN varenicline 0.5 mg (11)- 1 mg (42) tablets,dose pack See Rx Instructions PO PER PKG DIR Rx Instructions: PO PER PKG DIR acetaminophen [Tylenol Extra Strength] 500 mg tablet 1,000 mg PO Q6H PRN Dulera inhaler PRN tamsulosin 0.4 mg capsule PO Patient Comments: TAKE ONE CAPSULE BY MOUTH EVERY DAY Dulera 100-5 mcg/actuation HFA aerosol inhaler INHALATION Patient Comments: INHALE TWO PUFFS BY MOUTH TWICE A DAY Discharge Instructions Additional Instructions: followup 1 to 2 weeks for pathology results no lifting over 20 pounds for 5 days then activity as tolerated Discharge Orders Discharge Orders: Discharge Order (Routine); Ordered 09/15/23 Ordered By: Carter Ireland DS: Diagnosis Discharge Diagnosis (1) Primary bladder malignant neoplasm: Status: Acute
[2023-09-15 08:20] VITALS: BP 138/75; PULSE 83; RESP 15; TEMP 36; O2SAT 94
--- NOTE | 2023-09-15 08:21 | W.PM.OP ---
Date of service: 09/15/23 Time of Service: 08:21 Operative Note Operative Note DATE OF PROCEDURE: 09/15/23 PRE-OP DIAGNOSIS: Bladder tumor POST-OP DIAGNOSIS: same PROCEDURE: cystoscopy with TUR Bladder tumor (2 to 5 cm) SURGEON: Carter Ireland ANESTHESIA TYPE: Local By Surgeon and General:No Airway Refer to Anesthesia Record ESTIMATED BLOOD LOSS: 5 PATHOLOGY: other (bladder tumor) COMPLICATIONS: None Patient was transported to: same day Patient's condition: stable Implants: none Indications: This is a 73-year-old gentleman who has a history of noninvasive urothelial cell carcinoma of the bladder. He developed orchitis after his initial postprocedural chemotherapy instillation, so he has been treated with transurethral resection alone. On his most recent surveillance cystoscopy, we did identify multiple tumor recurrences. He presents for transurethral resection. We again elected not to give postprocedural chemotherapy. Findings: multiple papillary bladder lesions largest of which measures 2 to 3 cm Procedure Description: The patient was given preoperative antibiotics and brought to the operating room on 09/15/2023. After successful induction of general anesthesia, he was placed in the dorsolithotomy position. His genitalia was prepped and draped. 2% Xylocaine jelly was instilled into the urethra to act as a local anesthetic. The 22 [place] rigid cystoscope was passed through the urethra into the bladder. The urethra and bladder were inspected using a 30 degree lens. Both ureteral orifices appeared normal with no blood coming from either side. There was some papillary appearing tissue around the right ureteral orifice. In addition to the abnormal mucosa seen at the right RFS (extending out to the bladder neck) we identified multiple papillary lesions on the posterior bladder wall and up toward the dome. The largest of these lesions measured approximately 3 cm in largest dimension. We then removed the cystoscope and passed a 24 [place] resectoscope sheath through the urethra into the bladder. Transurethral resection of the visible bladder tumors was then accomplished using bipolar cautery and an apical ACS resectoscope. All resected tissue was evacuated and sent to pathology for permanent section. The base of the resection site were cauterized with coagulation current. At the completion of the procedure, no additional tumors were identified and there was no active bleeding seen. The bladder was emptied and the resectoscope was removed. The patient tolerated this procedure well with no complications. He was taken back to the day surgery unit in stable condition. Based on the pathology results, we will likely recommend an induction series of intravesical chemotherapy in the office.
[2023-09-15 08:30] VITALS: BP 133/86; PULSE 79; RESP 15; O2SAT 94
[2023-09-15] MEDS: Phenazopyridine 200 MG TAB PO (08:38)
--- NOTE | 2023-09-15 08:46 | W.ANESPOSTOP ---
Postoperative Evaluation Date, Time and Location Date Performed: 09/15/23 Time Performed: 08:47 Patient Location: Day Surgery Unit Vital Signs Most Recent Imported Vital Signs: Most Recent Vital Signs Temp Pulse Resp BP Pulse Ox 36 C L 79 15 133/86 94 09/15/23 08:20 09/15/23 08:30 09/15/23 08:30 09/15/23 08:30 09/15/23 08:30 Pain Score Most Recent Pain Score: Most Recent Pain Score Pain Level 0 09/15/23 08:30 Assessment Mental Status: Awake (Alert & Oriented to Patient Baseline) Airway and Respiratory Function: Patent airway with normal (patient baseline) respiratory exam Cardiovascular Function: Hemodynamically Stable Hydration Status: Adequately Hydrated Nausea & Vomiting: No Nausea or Vomiting Pain: Pt. Denies Any Pain Peripheral Nerve Block: Patient did not receive a nerve block
[2023-09-15 09:10] VITALS: BP 155/94; PULSE 87; RESP 20; TEMP 36.3; O2SAT 92
[2023-09-15] MEDS: traMADol 50 MG TAB PO (10:29)
== END 2023-09-15 10:55 | disposition home or self-care (01) ==
PROVIDERS: PCP Student in an Organized Health Care Education/Training Program; Visit Provider Urology
PROC: 0TBB8ZZ Excision of Bladder, Via Natural or Artificial Opening Endoscopic (ICD-10-PCS; CPT 52235; principal; 2023-09-15 07:30)
DX: C67.4 Malignant neoplasm of posterior wall of bladder (principal); J44.9 Chronic obstructive pulmonary disease, unspecified; I10 Essential (primary) hypertension; F17.210 Nicotine dependence, cigarettes, uncomplicated
CPT/HCPCS: 52235; 88305; 88307; J1100; J1580; J1885; J2001; J2405; J2704

== ENCOUNTER 2023-09-23 18:56 | Outpatient (REF) | payer MEDICARE, SELFPAY | END 2023-09-23 18:57 | disposition home or self-care (01) | LOC: NCHCN 18:56 | PROVIDERS: PCP Student in an Organized Health Care Education/Training Program; Visit Provider Nurse Practitioner Family | DX: N39.0 Urinary tract infection, site not specified (principal) | CPT/HCPCS: 87086 ==

== ENCOUNTER → 2023-10-03 14:47 | Outpatient (BNVA) | payer MEDICARE, SELFPAY | PROVIDERS: PCP Student in an Organized Health Care Education/Training Program; Referring Provider Student in an Organized Health Care Education/Training Program; Visit Provider Urology | DX: C67.9 Malignant neoplasm of bladder, unspecified (principal) | CPT/HCPCS: 51798; 99214 ==

== ENCOUNTER → 2023-10-24 08:50 | Outpatient (BNVA) | payer MEDICARE, SELFPAY | PROVIDERS: PCP Student in an Organized Health Care Education/Training Program; Referring Provider Student in an Organized Health Care Education/Training Program; Visit Provider Urology | DX: C67.9 Malignant neoplasm of bladder, unspecified (principal); R30.0 Dysuria; R35.0 Frequency of micturition | CPT/HCPCS: 51720; 81003; J9201 ==

== ENCOUNTER → 2023-10-31 14:44 | Outpatient (BNVA) | payer MEDICARE, SELFPAY | PROVIDERS: PCP Student in an Organized Health Care Education/Training Program; Referring Provider Student in an Organized Health Care Education/Training Program; Visit Provider Urology | DX: C67.9 Malignant neoplasm of bladder, unspecified (principal); N40.1 Benign prostatic hyperplasia with lower urinary tract symptoms; N13.8 Other obstructive and reflux uropathy | CPT/HCPCS: 51720; 81003; J9201 ==

== ENCOUNTER → 2023-11-06 13:11 | Outpatient (BNVA) | payer MEDICARE, SELFPAY | PROVIDERS: PCP Student in an Organized Health Care Education/Training Program; Referring Provider Student in an Organized Health Care Education/Training Program; Visit Provider Nurse Practitioner Gerontology | DX: N40.1 Benign prostatic hyperplasia with lower urinary tract symptoms (principal); N13.8 Other obstructive and reflux uropathy; C67.9 Malignant neoplasm of bladder, unspecified | CPT/HCPCS: 51720; 81003; J9201 ==

== ENCOUNTER → 2023-11-14 10:38 | Outpatient (BNVA) | payer MEDICARE, SELFPAY | PROVIDERS: PCP Student in an Organized Health Care Education/Training Program; Referring Provider Student in an Organized Health Care Education/Training Program; Visit Provider Urology | DX: N40.1 Benign prostatic hyperplasia with lower urinary tract symptoms (principal); N13.8 Other obstructive and reflux uropathy; C67.9 Malignant neoplasm of bladder, unspecified | CPT/HCPCS: 51720; 81003; J9201 ==

== ENCOUNTER → 2023-11-21 10:36 | Outpatient (BNVA) | payer MEDICARE, SELFPAY | PROVIDERS: PCP Student in an Organized Health Care Education/Training Program; Referring Provider Student in an Organized Health Care Education/Training Program; Visit Provider Urology | DX: C67.9 Malignant neoplasm of bladder, unspecified (principal) | CPT/HCPCS: 51720; 81003; J9201 ==

== ENCOUNTER → 2023-11-28 08:41 | Outpatient (BNVA) | payer MEDICARE, SELFPAY | PROVIDERS: PCP Student in an Organized Health Care Education/Training Program; Referring Provider Student in an Organized Health Care Education/Training Program; Visit Provider Urology | DX: C67.9 Malignant neoplasm of bladder, unspecified (principal) | CPT/HCPCS: 51720; 81003; J9201 ==

== ENCOUNTER → 2024-01-30 08:45 | Outpatient (BNVA) | payer MEDICARE, SELFPAY | PROVIDERS: PCP Student in an Organized Health Care Education/Training Program; Referring Provider Student in an Organized Health Care Education/Training Program; Visit Provider Urology | DX: C67.9 Malignant neoplasm of bladder, unspecified (principal) | CPT/HCPCS: 52000; 81003 ==

== ENCOUNTER 2024-01-30 09:30 | Outpatient (REF) | payer MEDICARE, SELFPAY ==
--- NOTE | 2024-01-30 09:00 | PAPNONF_PTH ---
PATIENT: Isaac Pascal LOC: [facility] U#:[id number] AGE/SX: 73/M ROOM: RE01/30/[address]: Carter Ireland MD : 1950 BED: DIS: 01/30/2024 SPEC #: [id number] RECD: 01/30/24 13:33 STATUS: ANABELA REQ #: [id number] JAMA: 01/30/24 09:[address]: Carter Ireland DEPT: [facility] Cytology RECD BY: Kelly Huertas ENTERED: 01/30/24 13:33 SP TYPE: MAUREEN GOLDEN DR: Benton Blancas Tissues: 1 - BODY FLUID CYTO(SPUTUM/URINE)[facility] Procedures: BODY FLUID CYTO(URINE/SPUTUM) Comments: [id number] (TV = 70 ml, 30 ml CYTOLYT ADDED) (REFRIGERATED)
== END 2024-01-30 09:31 | disposition home or self-care (01) ==
LOC: LBN 09:30
PROVIDERS: PCP Student in an Organized Health Care Education/Training Program; Visit Provider Urology
DX: C67.9 Malignant neoplasm of bladder, unspecified (principal)
CPT/HCPCS: 88104

== ENCOUNTER → 2024-04-30 08:50 | Outpatient (BNVA) | payer MEDICARE, SELFPAY | PROVIDERS: PCP Student in an Organized Health Care Education/Training Program; Referring Provider Student in an Organized Health Care Education/Training Program; Visit Provider Urology | DX: N40.1 Benign prostatic hyperplasia with lower urinary tract symptoms (principal); R35.0 Frequency of micturition; N13.8 Other obstructive and reflux uropathy; C67.9 Malignant neoplasm of bladder, unspecified | CPT/HCPCS: 52000; 81003 ==

== ENCOUNTER 2024-05-17 06:17 | Day surgery (SDC) | payer MEDICARE, SELFPAY ==
--- NOTE | 2024-05-17 06:29 | ANES.PREOP_ITS ---
General Info Date of Service Date Performed: 05/17/24 Height: 5 ft 11 in Weight: 87.09 kg Body Mass Index (BMI): 26.7 Surgical Procedure: Operation Date: 05/17/24 07:40 Proposed Procedure Side Surgeon p Cystoscopy w/Transurethral Resection Bladder Tumor Carter Ireland MD Meds Allergies and Home Medications Allergies Allergy/AdvReac Type Severity Reaction Status Date / Time mussels Allergy Severe Anaphylaxis Verified 05/17/24 07:03 Iodinated Contrast Media Allergy Anaphylaxis Verified 05/17/24 07:03 Home Medication ?Medication ?Instructions ?Recorded albuterol sulfate 90 mcg/actuation 2 puff inhalation Q4H PRN 12/20/20 aerosol inhaler budesonide-formoterol HFA 80 2 puff inhalation DAILY 12/20/20 mcg-4.5 mcg/actuation aerosol inhaler cyclobenzaprine 10 mg tablet 10 mg PO TID PRN 12/20/20 lisinopril 10 mg tablet 10 mg PO DAILY 12/20/20 acetaminophen 500 mg tablet 1,000 mg PO Q6H PRN 01/17/22 (Tylenol Extra Strength) atorvastatin 10 mg tablet 10 mg PO DAILY 07/01/23 mometasone-formoterol HFA 100 2 puff inhalation BID PRN 09/15/23 mcg-5 mcg/actuation aerosol inhaler (Dulera) tramadol 50 mg tablet 50 mg PO Q6H PRN pain #12 tabs 09/15/23 phenazopyridine 200 mg tablet 200 mg PO TID PRN pain #15 tabs 10/03/23 (Pyridium) mirabegron 25 mg tablet,extended 25 mg PO DAILY #90 tabs 01/30/24 release 24 hr (Myrbetriq) Current Visit Medications: Current Medications Generic Name Dose Route Start Last Admin Trade Name Freq PRN Reason Stop Dose Admin Gemcitabine HCl 2 gm 05/17/24 06:00 Gemcitabine 2 Gm Vial BLADIN 05/17/24 23:59 DIRECTED BRYON Ringer's Solution 1,000 mls @ 80 mls/hr 05/17/24 06:00 IV 05/17/24 23:59 INFUSION BRYON Cefazolin Sodium/Dextrose 2 gm in 50 mls @ 100 mls/hr 05/17/24 06:00 Ancef Duplex IVPB 05/17/24 23:59 PREOP BRYON IV Miscellaneous Supplies 1 each 05/17/24 06:00 Iv Access IV 05/17/24 23:59 DIRECTED BRYON Sodium Chloride 0 ml 05/17/24 06:00 Normal Saline Flush 10 Ml Syr IV 05/17/24 23:59 PRN PRN Sodium Chloride 0 ml 05/17/24 06:00 Normal Saline 10 Ml Vial IJ 05/17/24 23:59 DIRECTED PRN Sterile Water 0 ml 05/17/24 06:00 Water,Injection,Sterile 10 Ml Vial IJ 05/17/24 23:59 DIRECTED PRN PFSH Active Problems Active Problems: Problem Status Onset Code BPH w urinary obs/LUTS Acute N40.1, N13.8 Primary bladder malignant neoplasm Acute C67.9 Medical History Medical History COVID-19 01/2020-Asymptomatic COPD (chronic obstructive pulmonary disease) Essential hypertension Smoker Tachycardia Gross hematuria Surgical History Surgical History History of transurethral resection of bladder tumor (TURBT) 03/22/2022 Hx of tonsillectomy Tobacco Smoking/Tobacco Use Status: Current every day Tobacco Type: cigarettes Passive smoking exposure: Yes Alcohol Alcohol Intake: current Alcohol intake frequency: holidays/special occasions only Substance Use Substance use: Never Substance use type: does not use Vital Signs and Lab Results Vital Signs Most Recent Vital Signs in EMR: Temp Pulse Resp BP Pulse Ox 36.3 C L 115 H 20 124/82 96 05/17/24 06:48 05/17/24 06:48 05/17/24 06:48 05/17/24 06:48 05/17/24 06:48 Lab Results Blood Type / Crossmatch: No Data to Display Complete Blood Count: No Data to Display Complete Metabolic Panel: No Data to Display Liver Function Panel: No Data to Display Coagulation Panel: No Data to Display Cardiac Panel: No Data to Display Arterial Blood Gas: No Data to Display Venous Blood Gas: No Data to Display Pancreas Panel: No Data to Display Thyroid Panel: No Data to Display Infectious Disease: No Data to Display Blood Cultures: No Data to Display Toxicology Panel: No Data to Display Imaging and Studies Imaging and Studies Study information below may be from another EMR and interpreted by another provider. Please see original notes in EMR for more complete details. Echocardiogram Summary: 07/15/23 Conclusion Normal left ventricular wall thickness and chamber size. Ejection fraction is 60%. Wall motion is normal Mildly enlarged right ventricle with preserved systolic function Both atria are normal in size There is no structural or hemodynamically significant valvular disease Estimated right ventricular systolic pressure is 23 mmHg Anesthesia Assessment and Plan Anesthesia History Personal History: No History of Anesthesia Complications Family History: No Family History of Anesthesia Complications Exercise Tolerance Exercise Tolerance: Metabolic Equivalents>4 Cardiac & Pulmonary Exam Cardiac Exam: Normal S1/S2 Heart Sounds Pulmonary Exam: Clear Bilateral Breath Sounds Cardiac and Pulmonary Comment:: Used inhaler this am, lungs clear, continues to smoke Implantable Cardiac Device Does patient have a Pacemaker or an ICD?: No Airway Exam Known Difficult Airway: No Mallampati Class: 2 Mouth Opening: Normal (> 3cm) Thyromental Distance: Greater than 3 cm Neck Range of Motion: Full ROM Neck Circumference: Thick Teeth Condition: Normal Dentition ASA Classification ASA Score: ASA 2 Emergency Case?: No NPO Status NPO Status: NPO Clears >2 hours, Solids >8 hours Anesthesia Plan Resuscitation Status: Full Code Anesthesia Technique: General Anesthesia Airway Planned: Natural Airway Monitors Used: Standard Monitors Preoperative Comments:: 73 yo male for TURBT. Sig PMHx: COPD (budesonide/formoterol, albuterol, breathing feels fair today), HTN (lisinopril), smoker. Previous Anes: - cysto, sevo/prop/dexmed, igel 4 (supreme failed), required albuterol and phe nyl. - cysto, prop, natural airway, no issues.
[2024-05-17 06:48] VITALS: BP 124/82; PULSE 115; RESP 20; TEMP 36.3; O2SAT 96
[2024-05-17 06:55] VITALS: BMI 26.7
[2024-05-17] MEDS: Lactated Ringers 1,000 ML 80 ML IV (07:00)
--- NOTE | 2024-05-17 07:04 | HPE_ITS ---
Date of service: 05/17/24 Time of Service: 07:12 Assessment and Plan Assessment and plan (1) Primary bladder malignant neoplasm: Status: Acute Assessment and plan: We will move forward with cystoscopy and transurethral resection of his visible bladder tumors History of Present Illness History of Present Illness Chief Complaint: Bladder cancer Narrative: This is a 73-year-old gentleman who has a history of urothelial cell carcinoma the bladder. His tumors have not been muscle invasive. He has been treated with transurethral resections along with intravesical treatments into the bladder. On his most recent surveillance cystoscopy, we identified papillary lesions at the bladder neck and just in front of the left ureteral orifice. He presents for transurethral resection. Review of Systems Narrative: No fevers or chills Cataracts. No vision change or dysphasia No diabetes or thyroid dysfunction Asthma. No hemoptysis No chest pain or palpitations No nausea, vomiting, hepatitis, ulcers, jaundice, diarrhea or constipation Tremor. No seizures, strokes or peripheral neuropathy No bleeding disorders or anemia No gout PFSH All Active Problems BPH w urinary obs/LUTS (Acute) Primary bladder malignant neoplasm (Acute) Medical History COVID-19 01/2020-Asymptomatic COPD (chronic obstructive pulmonary disease) Essential hypertension Smoker Tachycardia Gross hematuria Surgical History History of transurethral resection of bladder tumor (TURBT) 03/22/2022 Hx of tonsillectomy Social History Smoking/Tobacco Use Status: Current every day Tobacco Type: cigarettes Smoking risk assessment performed?: Yes Alcohol Intake: current Alcohol Intake frequency: holidays/special occasions only Drug use: Never Substance use type: does not use Housing: house Do you feel safe at home: Yes Do you feel safe in your relationship?: Yes Meds Allergies and Home Medications Allergies Allergy/AdvReac Type Severity Reaction Status Date / Time mussels Allergy Severe Anaphylaxis Verified 05/17/24 07:03 Iodinated Contrast Media Allergy Anaphylaxis Verified 05/17/24 07:03 Home Medications ?Medication ?Instructions ?Recorded ?Confirmed ?Type albuterol sulfate 90 mcg/actuation 2 puff inhalation Q4H PRN 12/20/20 05/17/24 History aerosol inhaler budesonide-formoterol HFA 80 2 puff inhalation DAILY 12/20/20 05/17/24 History mcg-4.5 mcg/actuation aerosol inhaler cyclobenzaprine 10 mg tablet 10 mg PO TID PRN 12/20/20 05/17/24 History lisinopril 10 mg tablet 10 mg PO DAILY 12/20/20 05/17/24 History acetaminophen 500 mg tablet 1,000 mg PO Q6H PRN 01/17/22 05/17/24 History (Tylenol Extra Strength) atorvastatin 10 mg tablet 10 mg PO DAILY 07/01/23 05/17/24 History mometasone-formoterol HFA 100 2 puff inhalation BID PRN 09/15/23 05/17/24 His tory mcg-5 mcg/actuation aerosol inhaler (Dulera) tramadol 50 mg tablet 50 mg PO Q6H PRN pain #12 tabs 09/15/23 05/17/24 Rx phenazopyridine 200 mg tablet 200 mg PO TID PRN pain #15 tabs 10/03/23 05/14/24 Rx (Pyridium) mirabegron 25 mg tablet,extended 25 mg PO DAILY #90 tabs 01/30/24 05/17/24 Rx release 24 hr (Myrbetriq) cholecalciferol (vitamin D3) 50 50 mcg PO DAILY 05/17/24 05/17/24 History mcg (2,000 unit) capsule (Vitamin D3) Exam Neck Neck: supple Resp Effort & Inspection: normal respiratory effort Auscultation: clear to auscultation bilaterally Cardio Rate: regular rate Rhythm: regular rhythm Neuro General: patient alert, patient awake and patient oriented x3 Results Last Vital Signs Temp 36.3 C L 05/17/24 06:48 Pulse 115 H 05/17/24 06:48 Resp 20 05/17/24 06:48 BP 124/82 05/17/24 06:48 Pulse Ox 96 05/17/24 06:48 Time Spent Time spent with Patient: <40 minutes Time was spent: other
[2024-05-17] MEDS: ceFAZolin 2 GM/50 ML BAG IVPB (07:33)
--- NOTE | 2024-05-17 08:00 | BLADDER_PTH ---
PATIENT: Isaac Pascal LOC: [facility] U#:[id number] AGE/SX: 73/M ROOM: RE05/17/[address]: Carter Ireland MD : [id number] BED: DIS: 05/17/2024 SPEC #: [id number] RECD: 05/17/24 12:54 STATUS: ANABELA REQ #: [id number] JAMA: 05/17/24 08:[address]: Carter Ireland DEPT: Surgical Specimen RECD BY: Kelly Huertas ENTERED: 05/17/24 12:55 SP TYPE: Bladder OTHR DR: Benton Blancas Tissues: 1 - BLADDER BIOPSY Procedures: GROSS AND MICRO LEVEL 4 Comments: [id number]
[2024-05-17] MEDS: Lidocaine 2% Jelly 6 ML SYR (08:01)
[2024-05-17 08:20] VITALS: BP 96/68; PULSE 114; RESP 18; TEMP 36.3; O2SAT 90
--- NOTE | 2024-05-17 08:26 | W.ANESPOSTOP ---
Postoperative Evaluation Date, Time and Location Date Performed: 05/17/24 Time Performed: 08:26 Patient Location: Day Surgery Unit Vital Signs Most Recent Imported Vital Signs: Most Recent Vital Signs Temp Pulse Resp BP Pulse Ox 36.3 C L 114 H 18 96/68 L 90 L 05/17/24 08:20 05/17/24 08:20 05/17/24 08:20 05/17/24 08:20 05/17/24 08:20 Pain Score Most Recent Pain Score: Most Recent Pain Score Pain Level 0 05/17/24 08:20 Assessment Mental Status: Awake (Alert & Oriented to Patient Baseline) Airway and Respiratory Function: Abnormal Respiratory exam (See explanation) (cough with long expiratory phase, wheeze, neb ordered. ) Cardiovascular Function: Hemodynamically Stable Hydration Status: Adequately Hydrated Nausea & Vomiting: No Nausea or Vomiting Pain: Pt. Denies Any Pain Peripheral Nerve Block: Patient did not receive a nerve block
[2024-05-17] MEDS: Albuterol/Ipratropium 3 ML UPD VIAL UPD (08:30)
--- NOTE | 2024-05-17 08:31 | W.PM.DSUDISC ---
Date of service: 05/17/24 Discharge Plan Disposition Patient Disposition: Home Condition: Stable Discharge Details Reason For Visit: bladder tumor Attending Provider: Carter Ireland Primary Care Provider: Benton Blancas Home Meds and New Rx's Prescriptions: No Action atorvastatin 10 mg tablet 10 mg PO DAILY mirabegron [Myrbetriq] 25 mg tablet extended release 24 hr 25 mg PO DAILY Qty: 90 4RF tramadol 50 mg tablet 50 mg PO Q6H PRN (Reason: pain) Qty: 12 0RF Rx Instructions: may take along with NSAIDS/Tylenol phenazopyridine [Pyridium] 200 mg tablet 200 mg PO TID PRN (Reason: pain) Qty: 15 0RF albuterol sulfate 90 mcg/actuation HFA aerosol inhaler 2 puff inhalation Q4H PRN budesonide-formoterol 80-4.5 mcg/actuation HFA aerosol inhaler 2 puff inhalation DAILY lisinopril 10 mg tablet 10 mg PO DAILY cyclobenzaprine 10 mg tablet 10 mg PO TID PRN acetaminophen [Tylenol Extra Strength] 500 mg tablet 1,000 mg PO Q6H PRN Dulera 100-5 mcg/actuation HFA aerosol inhaler 2 puff INHALATION BID PRN Patient Comments: INHALE TWO PUFFS BY MOUTH TWICE A DAY cholecalciferol (vitamin D3) [Vitamin D3] 50 mcg (2,000 unit) capsule 50 mcg PO DAILY Discharge Instructions Additional Instructions: leave montiel clamped with chemotherapy within bladder for @ 1 hour then unclamp, drain bladder and remove catheter - unclamp and remove catheter sooner if patient unable to tolerate due to discomfort followup 1 to 2 weeks to review surgical pathology Activity:: Activity as Tolerated Shower/Bathe:: 24 hours Diet:: As Tolerated Discharge Orders Discharge Orders: Discharge Order (Routine); Ordered 05/17/24 Ordered By: Carter Ireland DS: Diagnosis Discharge Diagnosis (1) Primary bladder malignant neoplasm: Status: Acute
--- NOTE | 2024-05-17 08:34 | W.PM.OP ---
Operative Note Operative Note PRE-OP DIAGNOSIS: bladder cancer PROCEDURE: cystoscopy with transurethral resection of bladder tumors and instillation of Gemcitabine into bladder SURGEON: Carter Ireland ANESTHESIA TYPE: Local By Surgeon and General:No Airway Refer to Anesthesia Record ESTIMATED BLOOD LOSS: 5 PATHOLOGY: other (bladder tumor) COMPLICATIONS: None Patient was transported to: same day Patient's condition: stable Implants: 16 Kinyarwanda montiel with 10 cc sterile water in balloon Indications: This is a 73-year-old gentleman who has a history of high-grade, noninvasive urothelial cell carcinoma of the bladder. He has been treated with an induction series of intravesical gemcitabine. On surveillance cystoscopy, he was found to have multiple small recurrent tumors. He presents for transurethral resection. Findings: multiple small papillary bladder tumors Procedure Description: The patient was given preoperative IV antibiotics. He was brought to the operating room on 05/17/2024. After successful induction of general anesthesia, he was placed in the dorsal lithotomy position. His genitalia was prepped with Betadine. 2% Xylocaine jelly was instilled into the urethra to act as a local anesthetic. A 24 Kinyarwanda resectoscope sheath was passed through the urethra into the bladder. The urethra and bladder were inspected with the 30 degree lens. The pendulous, bulbar and membranous urethra's appeared normal with no strictures. The prostatic urethra showed some lateral lobe enlargement but no significant median lobe. No papillary lesions were seen on the prostatic mucosa. The bladder neck was entered and the bladder mucosa was inspected. Both ureteral orifices appeared normal with no blood coming from either side. Multiple small papillary lesions were identified near the trigone and on the posterior bladder wall. None of these lesions measured greater than 2 cm in largest dimension. Transurethral resection of the visible tumors was performed using an [employer] resectoscope and bipolar cautery. The resection sites were cauterized. The resected tissue was evacuated and sent to pathology for permanent section. Hemostasis appeared excellent. The bladder was filled with irrigant and the resectoscope was removed. A 16 Kinyarwanda Montiel catheter was then passed through the urethra into the bladder. The catheter balloon was inflated with 10 cc of sterile water. The bladder was drained. A solution containing 2 g of gemcitabine mixed and 50 mL of dilute and was then instilled into the bladder. The Montiel catheter was clamped allowing the solution to remain in place. The patient tolerated this procedure well with no complications. Date of Procedure: 05/17/24
[2024-05-17] MEDS: Oxybutynin 5 MG TAB PO (08:40)
[2024-05-17 08:43] VITALS: PULSE 101; RESP 20; TEMP 36.5; O2SAT 96
[2024-05-17] MEDS: Phenazopyridine 200 MG TAB PO (08:51)
== END 2024-05-17 09:21 | disposition home or self-care (01) ==
PROVIDERS: PCP Student in an Organized Health Care Education/Training Program; Visit Provider Urology
PROC: 0TBB8ZZ Excision of Bladder, Via Natural or Artificial Opening Endoscopic (ICD-10-PCS; CPT 52234; principal; 2024-05-17 07:30)
DX: C67.9 Malignant neoplasm of bladder, unspecified (principal); N40.1 Benign prostatic hyperplasia with lower urinary tract symptoms; N13.8 Other obstructive and reflux uropathy; F17.210 Nicotine dependence, cigarettes, uncomplicated; I10 Essential (primary) hypertension; J44.9 Chronic obstructive pulmonary disease, unspecified
CPT/HCPCS: 52234; 51720; 88305; J0690; J1100; J1805; J2003; J2405; J2704; J7620; J9201

== ENCOUNTER → 2024-06-01 11:10 | Outpatient (BNVA) | payer MEDICARE, SELFPAY | PROVIDERS: PCP Student in an Organized Health Care Education/Training Program; Referring Provider Student in an Organized Health Care Education/Training Program; Visit Provider Urology | DX: C67.9 Malignant neoplasm of bladder, unspecified (principal) | CPT/HCPCS: 99024; 99213 ==

== ENCOUNTER → 2024-09-03 08:42 | Outpatient (BNVA) | payer MEDICARE, SELFPAY | PROVIDERS: PCP Student in an Organized Health Care Education/Training Program; Referring Provider Student in an Organized Health Care Education/Training Program; Visit Provider Urology | DX: C67.9 Malignant neoplasm of bladder, unspecified (principal); R35.0 Frequency of micturition | CPT/HCPCS: 81002; 52000 ==

== ENCOUNTER 2024-10-07 06:03 | Day surgery (SDC) | payer MEDICARE, SELFPAY ==
[2024-10-07] VITALS (19 sets, daily range): BP systolic 118–159; BP diastolic 77–92; PULSE 74–124; RESP 14–24; TEMP 36.1–36.5; O2SAT 92–99; BMI 28.0
[2024-10-07] MEDS: Lactated Ringers 1,000 ML 80 ML IV (06:37)
--- NOTE | 2024-10-07 06:52 | W.PM.HP.N ---
Date of service: 10/07/24 Time of Service: 07:14 Assessment and Plan Assessment and plan (1) Primary bladder malignant neoplasm: Status: Acute Assessment and plan: We will perform cystoscopy with transurethral resection of his bladder tumors. Additional recommendations will be made based on his pathology results. History of Present Illness History of Present Illness Chief Complaint: Bladder cancer Narrative: This is a 74-year-old gentleman who has a history of high-grade, noninvasive urothelial cell carcinoma of the bladder. He has completed transurethral resection followed by an induction series of intravesical gemcitabine. When we did a surveillance cystoscopy after his induction series of chemotherapy, we identified visible tumor recurrence. He again had high grade non-invasive urothelial cell carcinoma. We performed transurethral resection and a perioperative dose of gemcitabine but we did not repeat an induction series of intravesical chemotherapy. On his follow-up cystoscopy, we again identified papillary lesions in his bladder. He presents for transurethral resection. He does have urinary frequency and voids small volumes at a time. He is on a combination of Tamsulosin and Myrbetriq for his symptoms. He has no gross hematuria. Review of Systems Narrative: No fevers or chills No vision change or dysphasia Increased Hgb A1C. No thyroid dysfunction COPD. No hemoptysis Tachycardia. No chest pain No nausea, vomiting, hepatitis, ulcers, jaundice No seizures, strokes or peripheral neuropathy No bleeding disorders or anemia Back pain. No gout PFSH All Active Problems BPH w urinary obs/LUTS (Acute) Primary bladder malignant neoplasm (Acute) Medical History COVID-19 01/2020-Asymptomatic COPD (chronic obstructive pulmonary disease) Essential hypertension Smoker Tachycardia Gross hematuria Surgical History History of transurethral resection of bladder tumor (TURBT) 03/22/2022 Hx of tonsillectomy Social History Smoking/Tobacco Use Status: Current every day Tobacco Type: cigarettes Smoking risk assessment performed?: Yes Alcohol Intake: current Alcohol Intake frequency: holidays/special occasions only Drug use: Never Substance use type: does not use Housing: house Do you feel safe at home: Yes Do you feel safe in your relationship?: Yes Meds Allergies and Home Medications Allergies Allergy/AdvReac Type Severity Reaction Status Date / Time iodine Allergy Severe Anaphylaxis Verified 10/07/24 06:25 mussels Allergy Severe Anaphylaxis Verified 10/07/24 06:25 Iodinated Contrast Media Allergy Anaphylaxis Verified 10/07/24 06:25 Home Medications ?Medication ?Instructions ?Recorded ?Confirmed ?Type albuterol sulfate 90 mcg/actuation 2 puff inhalation Q4H PRN 12/20/20 10/07/24 History aerosol inhaler budesonide-formoterol HFA 80 2 puff inhalation DAILY 12/20/20 10/07/24 History mcg-4.5 mcg/actuation aerosol inhaler cyclobenzaprine 10 mg tablet 10 mg PO TID PRN 12/20/20 10/07/24 History acetaminophen 500 mg tablet 1,000 mg PO Q6H PRN 01/17/22 10/07/24 History (Tylenol Extra Strength) atorvastatin 10 mg tablet 10 mg PO DAILY 07/01/23 10/07/24 History mometasone-formoterol HFA 100 2 puff inhalation BID PRN 09/15/23 10/07/24 History mcg-5 mcg/actuation aerosol inhaler (Dulera) tramadol 50 mg tablet 50 mg PO Q6H PRN pain #12 tabs 09/15/23 10/07/24 Rx phenazopyridine 200 mg tablet 200 mg PO TID PRN pain #15 tabs 10/03/23 10/07/24 Rx (Pyridium) mirabegron 25 mg tablet,extended 25 mg PO DAILY #90 tabs 01/30/24 10/07/24 Rx release 24 hr (Myrbetriq) cholecalciferol (vitamin D3) 50 50 mcg PO DAILY 05/17/24 10/07/24 History mcg (2,000 unit) capsule (Vitamin D3) Exam Const General: cooperative Neck Neck: supple Resp Effort & Inspection: normal respiratory effort Auscultation: clear to auscultation bilaterally Cardio Rate: tachycardic Rhythm: regular rhythm GI Palpation: soft and no masses Neuro General: patient alert, patient awake and patient oriented x3 Results Last Vital Signs Temp 36.5 C 10/07/24 06:16 Pulse 124 H 10/07/24 06:16 Resp 24 08/21/25 06:16 BP 132/89 10/07/24 06:16 Pulse Ox 92 10/07/24 06:16 Time Spent Time spent with Patient: <40 minutes Time was spent: other
[2024-10-07] MEDS: Albuterol 2.5 MG/3 ML INH SOLN VIAL UPD (07:32)
--- NOTE | 2024-10-07 07:32 | W.ANESPRE ---
General Info Date of Service Date Performed: 10/07/24 Height: 5 ft 11 in Weight: 91.3 kg Body Mass Index (BMI): 28.0 Surgical Procedure: Operation Date: 10/07/24 07:40 Proposed Procedure Side Surgeon p Cystoscopy w/Transurethral Resection Bladder Tumor/ Bi-Lateral Retrograde Carter Ireland MD Meds Allergies and Home Medications Allergies Allergy/AdvReac Type Severity Reaction Status Date / Time iodine Allergy Severe Anaphylaxis Verified 10/07/24 06:25 mussels Allergy Severe Anaphylaxis Verified 10/07/24 06:25 Iodinated Contrast Media Allergy Anaphylaxis Verified 10/07/24 06:25 Home Medication ?Medication ?Instructions ?Recorded albuterol sulfate 90 mcg/actuation 2 puff inhalation Q4H PRN 12/20/20 aerosol inhaler budesonide-formoterol HFA 80 2 puff inhalation DAILY 12/20/20 mcg-4.5 mcg/actuation aerosol inhaler cyclobenzaprine 10 mg tablet 10 mg PO TID PRN 12/20/20 acetaminophen 500 mg tablet 1,000 mg PO Q6H PRN 01/17/22 (Tylenol Extra Strength) atorvastatin 10 mg tablet 10 mg PO DAILY 07/01/23 mometasone-formoterol HFA 100 2 puff inhalation BID PRN 09/15/23 mcg-5 mcg/actuation aerosol inhaler (Dulera) tramadol 50 mg tablet 50 mg PO Q6H PRN pain #12 tabs 09/15/23 phenazopyridine 200 mg tablet 200 mg PO TID PRN pain #15 tabs 10/03/23 (Pyridium) mirabegron 25 mg tablet,extended 25 mg PO DAILY #90 tabs 01/30/24 release 24 hr (Myrbetriq) cholecalciferol (vitamin D3) 50 50 mcg PO DAILY 05/17/24 mcg (2,000 unit) capsule (Vitamin D3) Current Visit Medications: Current Medications Generic Name Dose Route Start Last Admin Trade Name Freq PRN Reason Stop Dose Admin Albuterol Sulfate 2.5 mg 10/07/24 07:23 10/07/24 07:32 Albuterol 2.5 Mg/3 Ml Inh Soln Vial UPD 10/07/24 07:24 2.5 mg NOW ONE Administration Droperidol 0.625 mg 10/07/24 07:24 Droperidol 5 Mg/2 Ml Vial IVP 11/06/24 07:23 DIRECTED PRN Ephedrine Sulfate 0 mg 10/07/24 07:24 Ephedrine 25 Mg/5 Ml Syringe IVP 11/06/24 07:23 DIRECTED PRN Fentanyl 0 mcg 10/07/24 07:24 Fentanyl 100 Mcg/2 Ml Vial IVP 11/06/24 07:23 DIRECTED PRN Hydromorphone HCl 0 mg 10/07/24 07:24 Hydromorphone 2 Mg/Ml Syr IVP 11/06/24 07:23 DIRECTED PRN Ringer's Solution 1,000 mls @ 80 mls/hr 10/07/24 06:00 10/07/24 06:37 IV 10/07/24 23:59 80 mls/hr INFUSION BRYON Administration Cefazolin Sodium/Dextrose 2 gm in 50 mls @ 100 mls/hr 10/07/24 06:00 Ancef Duplex IVPB 10/07/24 23:59 PREOP BRYON IV Miscellaneous Supplies 1 each 10/07/24 06:00 Iv Access IV 10/07/24 23:59 DIRECTED BRYON Naloxone HCl 0 mg 10/07/24 07:24 Naloxone 0.4 Mg/Ml Vial IVP 11/06/24 07:23 PRN PRN Sodium Chloride 0 ml 10/07/24 06:00 Normal Saline Flush 10 Ml Syr IV 10/07/24 23:59 PRN PRN Sodium Chloride 0 ml 10/07/24 06:00 Normal Saline 10 Ml Vial IJ 10/07/24 23:59 DIRECTED PRN Sterile Water 0 ml 10/07/24 06:00 Water,Injection,Sterile 10 Ml Vial IJ 10/07/24 23:59 DIRECTED PRN PFSH Active Problems Active Problems: Problem Status Onset Code BPH w urinary obs/LUTS Acute N40.1, N13.8 Primary bladder malignant neoplasm Acute C67.9 Medical History Medical History COVID-19 01/2020-Asymptomatic COPD (chronic obstructive pulmonary disease) Essential hypertension Smoker Tachycardia Gross hematuria Surgical History Surgical History History of transurethral resection of bladder tumor (TURBT) 03/22/2022 Hx of tonsillectomy Tobacco Smoking/Tobacco Use Status: Current every day Tobacco Type: cigarettes Passive smoking exposure: Yes Alcohol Alcohol Intake: current Alcohol intake frequency: holidays/special occasions only Substance Use Substance use: Never Substance use type: does not use Vital Signs and Lab Results Vital Signs Most Recent Vital Signs in EMR: Most Recent Vital Signs Temp Pulse Resp BP Pulse Ox 36.5 C 124 H 24 132/89 92 10/07/24 06:16 10/07/24 06:16 10/07/24 06:16 10/07/24 06:16 10/07/24 06:16 Imaging and Studies Imaging and Studies Study information below may be from another EMR and interpreted by another provider. Please see original notes in EMR for more complete details. Echocardiogram Summary: 07/15/23 Conclusion Normal left ventricular wall thickness and chamber size. Ejection fraction is 60%. Wall motion is normal Mildly enlarged right ventricle with preserved systolic function Both atria are normal in size There is no structural or hemodynamically significant valvular disease Estimated right ventricular systolic pressure is 23 mmHg Anesthesia Assessment and Plan Anesthesia History Personal History: No History of Anesthesia Complications Family History: No Family History of Anesthesia Complications Exercise Tolerance Exercise Tolerance: Metabolic Equivalents>4 Pertinent Negatives Pertinent Negatives: No Symptoms of GERD Cardiac & Pulmonary Exam Cardiac Exam: Normal S1/S2 Heart Sounds Pulmonary Exam: Clear Bilateral Breath Sounds Implantable Cardiac Device Does patient have a Pacemaker or an ICD?: No Airway Exam Known Difficult Airway: No Mallampati Class: 2 Mouth Opening: Normal (> 3cm) Thyromental Distance: Greater than 3 cm Neck Range of Motion: Full ROM Neck Circumference: Thick Teeth Condition: Normal Dentition ASA Classification ASA Score: ASA 3 Emergency Case?: No NPO Status NPO Status: NPO Clears >2 hours, Solids >8 hours Anesthesia Plan Resuscitation Status: Full Code Anesthesia Technique: General Anesthesia Airway Planned: LMA Monitors Used: Standard Monitors
[2024-10-07] MEDS: ceFAZolin 2 GM/50 ML BAG IVPB (08:08)
[2024-10-07] MEDS: Lidocaine 2% Jelly 11 ML SYR (08:23)
[2024-10-07] MEDS: Omnipaque 300 MG/ML 50 ML BTL (08:27)
--- NOTE | 2024-10-07 08:30 | DI.RAD_ITS ---
Exam(s) XR RETROGRADE IN OR EXAM: XR RETROGRADE IN OR CLINICAL HISTORY: bladder cancer. TECHNIQUE: Fluoroscopy was provided for the referring physician for guidance with performing retrograde procedure. COMPARISON: No exams were available for comparison FINDINGS: Please see procedure note for details. Fluoro time: 20.8 seconds RADIATION DOSE DELIVERED: leena Grant=5.82 mGy
--- NOTE | 2024-10-07 08:32 | BLADDER_PTH ---
PATIENT: Isaac Pascal LOC: [facility] U#:[id number] AGE/SX: 74/M ROOM: RE10/07/[address]: Carter Ireland MD : [id number] BED: DIS: 10/07/2024 SPEC #: [id number] RECD: 10/07/24 12:45 STATUS: ANABELA REQ #: [id number] JAMA: 10/07/24 08:[address]: Carter Ireland DEPT: Surgical Specimen RECD BY: Kelly Huertas ENTERED: 10/07/24 12:46 SP TYPE: Bladder OTHR DR: Benton Blancas Tissues: 1 - BLADDER BIOPSY Procedures: GROSS AND MICRO LEVEL 4 Comments: [id number]
--- NOTE | 2024-10-07 08:58 | PDOC.DSDIS_ITS ---
Date of service: 10/07/24 Discharge Plan Disposition Patient Disposition: Home Condition: Stable Discharge Details Reason For Visit: cystoscopy with removal of bladder tumors Attending Provider: Carter Ireland Primary Care Provider: Benton Blancas Home Meds and New Rx's Prescriptions: No Action atorvastatin 10 mg tablet 10 mg PO DAILY mirabegron [Myrbetriq] 25 mg tablet extended release 24 hr 25 mg PO DAILY Qty: 90 4RF tramadol 50 mg tablet 50 mg PO Q6H PRN (Reason: pain) Qty: 12 0RF Rx Instructions: may take along with NSAIDS/Tylenol phenazopyridine [Pyridium] 200 mg tablet 200 mg PO TID PRN (Reason: pain) Qty: 15 0RF albuterol sulfate 90 mcg/actuation HFA aerosol inhaler 2 puff inhalation Q4H PRN budesonide-formoterol 80-4.5 mcg/actuation HFA aerosol inhaler 2 puff inhalation DAILY cyclobenzaprine 10 mg tablet 10 mg PO TID PRN acetaminophen [Tylenol Extra Strength] 500 mg tablet 1,000 mg PO Q6H PRN Dulera 100-5 mcg/actuation HFA aerosol inhaler 2 puff INHALATION BID PRN Patient Comments: INHALE TWO PUFFS BY MOUTH TWICE A DAY cholecalciferol (vitamin D3) [Vitamin D3] 50 mcg (2,000 unit) capsule 50 mcg PO DAILY Discharge Instructions Additional Instructions: followup 1 to 2 weeks to review surgical pathology Stand Alone Forms: Anesthesia Discharge Inst., [facility] Urology Shanti Vasquez ([facility]) Referrals: Carter Ireland MD [ [facility] STAFF PHYSICIAN, Urology] Activity:: may resume full activity in about 48 hours - until then, no straining or li Shower/Bathe:: 24 hours Diet:: As Tolerated Discharge Orders Discharge Orders: Discharge Order (Routine); Ordered 10/07/24 Ordered By: Carter Ireland DS: Diagnosis Discharge Diagnosis (1) Primary bladder malignant neoplasm: Status: Acute
--- NOTE | 2024-10-07 09:00 | W.PM.OP ---
Operative Note Operative Note PRE-OP DIAGNOSIS: bladder tumor POST-OP DIAGNOSIS: same PROCEDURE: cystoscopy, bilateral retrograde pyelogram, TUR bladder tumors (2 to 5 cm) SURGEON: Carter Ireland ANESTHESIA TYPE: Local By Surgeon and General LMA/ETT Refer to Anesthesia Record ESTIMATED BLOOD LOSS: 5 PATHOLOGY: other (bladder tumors) COMPLICATIONS: None Patient was transported to: PACU Patient's condition: stable Indications: This is a 74-year-old gentleman who has a history of high-grade, noninvasive urothelial cell carcinoma of the bladder. He has undergone transurethral resection and perioperative injection therapy. After his initial diagnosis, he underwent an induction series of intravesical gemcitabine. On his most recent cystoscopy, we identified multiple papillary lesions. We had not performed any upper tract imaging for a few years. He presents now for cystoscopy with bilateral retrograde pyelogram. We will also plan for transurethral resection of his bladder tumors. Findings: Normal bilateral retrograde pyelograms Multiple papillary lesions throughout the bladder-the largest lesion measured between 2 and 5 cm Procedure Description: The patient was given antibiotics and brought to the operating room on 10/07/2024. After successful induction of general anesthesia, he was placed in the dorsal lithotomy position. His genitalia was prepped and draped. 2% Xylocaine jelly was instilled into the urethra to act as a local anesthetic. A 22 Malaysian rigid cystoscope was passed through the urethra into the bladder. The urethra and bladder were inspected with the 30 degree lens initially. The pendulous, bulbar and membranous urethra's appeared normal with no strictures. The prostatic urethra showed lateral lobe enlargement but no significant median lobe. No papillary mucosal was seen along the length of the prostatic urethra. The bladder neck was entered and the bladder mucosa was inspected. The left ureteral orifice appeared normal in configuration and location. The right orifice was a bit more engulfed in a previous surgical scar. No blood was seen coming from either ureteral orifice. Each orifice was then cannulated with a 5 Malaysian access catheter. A retrograde pyelogram was obtained by injecting Omnipaque through the access catheter under fluoroscopic guidance. No filling defects were seen in either kidney or in the ureters. We then reinspected the bladder using both a 30 and 70 degree lens. We identified multiple papillary lesions in the bladder predominantly on the posterior bladder wall. The trigone did not seem involved with any of the papillary lesions. The largest of the lesions appeared to be at the bladder neck anteriorly and measured approximately 3 cm. I then removed the cystoscope and passed a 24 Malaysian resectoscope sheath through the urethra into the bladder. Using an [employer] resectoscope and bipolar cautery, I performed transurethral resection of the largest of the visible tumors. Smaller tumors were cauterized using the coagulation current. All resected tissue was evacuated and sent to pathology for permanent section. At the completion of the procedure, no additional papillary lesions were seen. Hemostasis from the resection sites appeared excellent. The bladder was emptied and the resectoscope was removed. The patient tolerated the procedure well with no complications. He was taken to the recovery room in stable condition. Date of Procedure: 10/07/24
[2024-10-07] MEDS: Phenazopyridine 200 MG TAB PO (09:45)
--- NOTE | 2024-10-07 09:55 | W.ANESPOSTOP ---
Postoperative Evaluation Date, Time and Location Date Performed: 10/07/24 Time Performed: 09:56 Patient Location: Day Surgery Unit Vital Signs Most Recent Imported Vital Signs: Most Recent Vital Signs Temp Pulse Resp BP Pulse Ox 36.5 C 82 21 151/79 H 93 10/07/24 09:30 10/07/24 09:30 10/07/24 09:30 10/07/24 09:30 10/07/24 09:30 Pain Score Most Recent Pain Score: Most Recent Pain Score Pain Level 1 10/07/24 09:30 Assessment Mental Status: Awake (Alert & Oriented to Patient Baseline) Airway and Respiratory Function: Patent airway with normal (patient baseline) respiratory exam Cardiovascular Function: Hemodynamically Stable Hydration Status: Adequately Hydrated Nausea & Vomiting: No Nausea or Vomiting Pain: Pain is tolerable per patient (More pressure then pain) Peripheral Nerve Block: Patient did not receive a nerve block
== END 2024-10-07 11:00 | disposition home or self-care (01) ==
PROVIDERS: PCP Student in an Organized Health Care Education/Training Program; Visit Provider Urology
PROC: 0TBB8ZZ Excision of Bladder, Via Natural or Artificial Opening Endoscopic (ICD-10-PCS; CPT 52235; principal; 2024-10-07 07:30)
DX: C67.4 Malignant neoplasm of posterior wall of bladder (principal); C67.8 Malignant neoplasm of overlapping sites of bladder; J44.9 Chronic obstructive pulmonary disease, unspecified; I10 Essential (primary) hypertension; F17.210 Nicotine dependence, cigarettes, uncomplicated; Z79.899 Other long term (current) drug therapy
CPT/HCPCS: 52235; 88305; 74420; J0131; J0690; J1100; J2003; J2405; J2704; J7613; Q9967

== ENCOUNTER → 2024-10-29 15:03 | Outpatient (BNVA) | payer MEDICARE, SELFPAY | PROVIDERS: PCP Student in an Organized Health Care Education/Training Program; Referring Provider Student in an Organized Health Care Education/Training Program; Visit Provider Urology | DX: C67.9 Malignant neoplasm of bladder, unspecified (principal) | CPT/HCPCS: 99213 ==

== ENCOUNTER 2024-11-26 03:07 | Outpatient (CLI) | payer OTHER, SELFPAY ==
--- NOTE | 2024-11-26 | DI.US_ITS ---
APPROVED REPORT EXAM: Comprehensive 2D, Doppler, and color-flow Echocardiogram Patient Location: Out-Patient Power Saw Operator: Jacqueline Adan RDCS (AE) Indications: Inappropriate sinus tachycardia Other Information Study Quality: Adequate. Technically limited study due to body habitus. Conclusion Normal left ventricular wall thickness and chamber size. Ejection fraction is 50 to 55%. There are no segmental wall motion abnormalities Normal right ventricular size and function Both atria are normal in size There is no structural or hemodynamically significant valvular disease Estimated right ventricular systolic pressure is 32 mmHg Wall motion Left Ventricle The left ventricle is normal size. The left ventricular systolic function is normal. The left ventricular ejection fraction is within the normal range. There is normal left ventricular wall thickness. There is normal LV segmental wall motion. There is no ventricular septal defect visualized. LVEF is 52%. Right Ventricle Right ventricle is grossly normal in size. Right ventricular systolic function is grossly normal. Atria The left atrium size is normal. The right atrium size is normal. The interatrial septum is intact with no evidence for an atrial septal defect. Aortic Valve The aortic valve is normal in structure. Aortic valve is trileaflet. There is no aortic valvular stenosis. No aortic regurgitation is present. Mitral Valve The mitral valve is normal in structure. No evidence of mitral valve stenosis. Trace mitral regurgitation. Tricuspid Valve The tricuspid valve is normal in structure. There is no tricuspid valve stenosis. Trace tricuspid regurgitation. The RVSP is 32.4_ mmHg. Pulmonic Valve The pulmonary valve is normal in structure. There is no pulmonic valvular stenosis. There is no pulmonic valvular regurgitation. Great Vessels The aortic root is normal in size. The ascending aorta is normal in size. Ascending aorta is not well visualized. IVC is normal in size and collapses >50% with inspiration. Pericardium There is no pericardial effusion. 2D Dimensions IVSD d PLAX 0.90 cm M: 0.6-1.2 Ao Root d 3.62 cm M: 3.1 - 3.7 LVPW d PLAX 0.90 cm M: 0.6 - 1.2 Ao Asc Diam d 3.34 cm M: 2.6 - 3.4 LVID d PLAX 4.00 cm M: 4.2 - 5.8 LVDs 2.92 cm M: 2.5 - 4.0 LV EF Teichholz 51.7 % FS 26.05 % LV EDV (Teich) 68.0 mL LV ESV (Teich) 32.8 mL M-Mode TAPSE 2.15 cm (M/F) >1.7 Auto EF LV EDV A4C 90.8 mL LV EDV A2C 92.5 mL LV EDV BP 91.9 mL LV ESV A4C 43.6 mL LV ESV A2C 44.0 mL LV ESV BP 44.1 mL LVEF(%) A4C 52.0 % LVEF(%) A2C 52.4 % LVEF(%) BP 52.0 % LV SV A4C 47.3 ml LV SV A2C 48.5 ml LV SV BP 47.8 ml LV CO A4C 4.5 L/min LV CO A2C 4.2 L/min LV CO BP 4.4 L/min HR A4C 95.75 BPM HR A2C 86.75 BPM LV EDV Index (BP) LA Volume LA Length A4C 3.9 cm LA Length A2C 4.2 cm LA Area A4C s 11.15 cm2 LA Area A2C s 12.18 cm2 LA Vol A4C A-L 27.04 mL LA Vol A2C A-L 29.83 mL LA Vol Biplane A-L 29.6 mL LA Vol/BSA A4C A-L LA Vol/BSA A2C A-L LA Vol/BSA BP A-L 14.0 mL/m2 LA Vol A4C MOD 24.3 mL LA Vol A2C MOD 27.4 mL LA Vol BP MOD 26.8 mL RA Volume RA Area A4C 11.0 cm2 RA ESV A4C (A-L) 26.3mL RA Vol/BSA A4C A-L RA Length A4C 3.9 cm RA ESV A4C (MOD) 25.6mL LV Diastology MV E' medial 0.072 (>0.07 m/s) MV E Vmax 0.55 (0.4-1.3 m/s) MV E/E' MED 7.74 (<14) MV A Vmax 0.85 (0.4-1.3 m/s) MV E' lateral 0.073 (>0.1 m/s) E/A Ratio 0.6 MV E/E' LAT 7.64 (<14) MV E' Average 0.072 m/s MV E/E'(average) 7.69 Aortic Valve AoV Vmax 0.82 m/s LVOT Vmax 0.80 m/s AoV Peak Grad 2.7 mmHg LVOT Peak Grad 2.6 mmHg AoV Area (Vmax) 3.24 cm2 LVOT VTI 0.125 m AoV VTI 0.164 m LVOT Mean Grad 1.5 mmHg AoV Mean Jerson. 0.63 m/s LVOT SV 41.44 mL AoV Mean Grad 1.8 mmHg LVOT Diam s 2.05 cm AoV Area (VTI) 2.53 cm2 AV Regurg Peak Gr. 2.69 mmHg Velocity Ratio 0.98 Mitral Valve MV DT 233 (160-240 msec) MV Vmax TIPS 0.87 m/s MV Mean Grad 1.5 (<2mmHg) MV VTI 0.132 m Pulmonary Valve PV Vmax 0.72 (0.5-1.5 m/s) RVOT Vmax 0.66 m/s PV Peak Grad 2.1 mmHg RVOT Peak Gr. 1.7 mmHg PV Mean Jerson 0.55 m/s RVOT VTI 0.138 m PV Mean Grad 1.3 mmHg RVOT Mean Gr. 0.9 mmHg Tricuspid Valve RA Pressure 3.00 mmHg TR Vmax 2.71 m/s TV S' 0.12 m/s TR Peak Grad 29.3 mmHg RVSP (TR) 32.4 mmHg
== END 2024-11-26 03:27 ==
PROVIDERS: PCP Student in an Organized Health Care Education/Training Program; Visit Provider Internal Medicine Cardiovascular Disease
DX: I47.11 Inappropriate sinus tachycardia, so stated (principal)
CPT/HCPCS: 93306

== ENCOUNTER 2025-01-24 16:05 | Outpatient (REF) | payer MEDICARE, SELFPAY ==
[2025-01-24 18:38] LABS: Microalb ug/mg Crea 6.9 ug/mg Cr
[2025-01-24 22:07] LABS: Hemoglobin A1C 7.7 % (<5.7)
== END 2025-01-24 16:06 | disposition home or self-care (01) ==
LOC: NCHCN 16:05
PROVIDERS: PCP Student in an Organized Health Care Education/Training Program; Visit Provider Student in an Organized Health Care Education/Training Program
DX: E11.9 Type 2 diabetes mellitus without complications (principal)
CPT/HCPCS: 82043; 82570; 82985; 83036

== ENCOUNTER 2025-01-28 06:55 | Day surgery (SDC) | payer MEDICARE, SELFPAY ==
[2025-01-28] MEDS: Tropicam./Phenyleph. (1/2.5%) 5 ML BTL OD ×3 (07:28→07:38)
--- NOTE | 2025-01-28 07:44 | W.ANESPRE ---
General Info Date of Service Date Performed: 01/28/25 Height: 5 ft 11 in Weight: 87.09 kg Body Mass Index (BMI): 26.7 Surgical Procedure: Operation Date: 01/28/25 09:40 Proposed Procedure Side Surgeon p Cataract Extraction with IOL Implant Right Lakhwinder Rodriguez MD Meds Allergies and Home Medications Allergies Allergy/AdvReac Type Severity Reaction Status Date / Time iodine Allergy Severe Anaphylaxis Verified 01/28/25 07:10 mussels Allergy Severe Anaphylaxis Verified 01/28/25 07:10 Iodinated Contrast Media Allergy Anaphylaxis Verified 01/28/25 07:10 Home Medication ?Medication ?Instructions ?Recorded albuterol sulfate 90 mcg/actuation 2 puff inhalation Q4H PRN 12/20/20 aerosol inhaler budesonide-formoterol HFA 80 2 puff inhalation DAILY 12/20/20 mcg-4.5 mcg/actuation aerosol inhaler cyclobenzaprine 10 mg tablet 10 mg PO TID PRN 12/20/20 acetaminophen 500 mg tablet 1,000 mg PO Q6H PRN 01/17/22 (Tylenol Extra Strength) atorvastatin 10 mg tablet 10 mg PO DAILY 07/01/23 mometasone-formoterol HFA 100 2 puff inhalation BID PRN 09/15/23 mcg-5 mcg/actuation aerosol inhaler (Dulera) mirabegron 25 mg tablet,extended 25 mg PO DAILY #90 tabs 01/30/24 release 24 hr (Myrbetriq) cholecalciferol (vitamin D3) 50 50 mcg PO DAILY 05/17/24 mcg (2,000 unit) capsule (Vitamin D3) budesonide 160 mcg-glycopyr 9 2 inh inhalation BID 01/25/25 mcg-formot 4.8 mcg/actuation HFA inhaler (Breztri Aerosphere) metformin 500 mg tablet,extended 500 mg PO DAILY 01/25/25 release 24 hr (Glucophage XR) vitamin K2 90 mcg capsule 90 mcg PO DAILY 01/25/25 Current Visit Medications: Current Medications Generic Name Dose Route Start Last Admin Trade Name Freq PRN Reason Stop Dose Admin Acetaminophen 1,000 mg 01/28/25 06:00 Acetaminophen 500 Mg Tab PO 02/27/25 05:59 Q4H PRN PRN Balanced Salt Solution 500 ml 01/28/25 06:00 Balanced Salt Soln.-Plus 500 Ml Bag OP 02/27/25 05:59 DIRECTED BRYON Miscellaneous Medication 0 ml 01/28/25 06:00 Prednisolone 1%, Moxifloxacin 0.5%, Bromfenac 0.09% 5.6ml Btl OD 02/27/25 05:59 DIRECTED BRYON Miscellaneous Medication 0 ml 01/28/25 06:00 01/28/25 07:38 Tropicam./Phenyleph. (1/2.5%) 5 Ml Btl OD 02/27/25 05:59 1 drp DIRECTED BRYON Administration Tetracaine HCl 0 ml 01/28/25 06:00 Tetracaine 0.5% 4 Ml Btl OD 02/27/25 05:59 DIRECTED BRYON PFSH Active Problems Active Problems: Problem Status Onset Code Cortical age-related cataract, right eye Acute H25.011 Nuclear age-related cataract, right eye Acute H25.11 BPH w urinary obs/LUTS Acute N40.1, N13.8 Primary bladder malignant neoplasm Acute C67.9 Medical History Medical History Electrocardiogram abnormal Tobacco dependence due to cigarettes Hypercholesteremia Type 2 diabetes mellitus Cataract Obesity COVID-19 01/2020-Asymptomatic COPD (chronic obstructive pulmonary disease) Essential hypertension Smoker Tachycardia Gross hematuria Surgical History Surgical History History of transurethral resection of bladder tumor (TURBT) 03/22/2022 Hx of tonsillectomy Tobacco Smoking/Tobacco Use Status: Current every day Tobacco Type: cigarettes Passive smoking exposure: Yes Alcohol Alcohol Intake: current Alcohol intake frequency: holidays/special occasions only Substance Use Substance use: Never Substance use type: does not use Vital Signs and Lab Results Point of Care Results Point of Care Results: Finger Stick Blood Glucose 130 01/28/25 07:15 Lab Results Complete Metabolic Panel: Hemoglobin A1c, (<5.7) 7.7 % H 01/24/25, 14:35 Imaging and Studies Imaging and Studies Study information below may be from another EMR and interpreted by another provider. Please see original notes in EMR for more complete details. Echocardiogram Summary: 11/2024: Conclusion Normal left ventricular wall thickness and chamber size. Ejection fraction is 50 to 55%. There are no segmental wall motion abnormalities Normal right ventricular size and function Both atria are normal in size There is no structural or hemodynamically significant valvular disease Estimated right ventricular systolic pressure is 32 mmHg 07/15/23 Conclusion Normal left ventricular wall thickness and chamber size. Ejection fraction is 60%. Wall motion is normal Mildly enlarged right ventricle with preserved systolic function Both atria are normal in size There is no structural or hemodynamically significant valvular disease Estimated right ventricular systolic pressure is 23 mmHg Anesthesia Assessment and Plan Anesthesia History Personal History: No History of Anesthesia Complications Family History: No Family History of Anesthesia Complications Exercise Tolerance Exercise Tolerance: Metabolic Equivalents>4 Pertinent Negatives Pertinent Negatives: No Symptoms of GERD Cardiac & Pulmonary Exam Cardiac Exam: Normal S1/S2 Heart Sounds Pulmonary Exam: Clear Bilateral Breath Sounds Implantable Cardiac Device Does patient have a Pacemaker or an ICD?: No Airway Exam Known Difficult Airway: No Mallampati Class: 2 Mouth Opening: Normal (> 3cm) Thyromental Distance: Greater than 3 cm Neck Range of Motion: Full ROM Neck Circumference: Thick Teeth Condition: Normal Dentition ASA Classification ASA Score: ASA 2 Emergency Case?: No NPO Status NPO Status: NPO Clears >2 hours, Solids >8 hours Anesthesia Plan Resuscitation Status: Full Code Anesthesia Technique: MAC Anesthesia Airway Planned: Natural Airway Monitors Used: Standard Monitors
[2025-01-28 07:45] VITALS: BMI 26.7
[2025-01-28] MEDS: Lidocaine 1% Pres-Free 5 ML VIAL (08:59)
[2025-01-28] MEDS: Duovisc Viscoelastic System EACH 1 EACH (08:59)
[2025-01-28] MEDS: Phenylephrine/Lidocaine (15/10) MG/ML 1 ML VIAL (09:00)
[2025-01-28] MEDS: Moxifloxacin-PF 1 MG/ML VIAL (09:00)
[2025-01-28] MEDS: Balanced Salt Soln.-PLUS 500 ML BAG OP (09:01)
[2025-01-28] MEDS: Povidone-Iodine Ophth 30 ML BTL (09:01)
[2025-01-28] MEDS: Trypan Blue 0.06% 0.5 ML SYR (09:01)
[2025-01-28] MEDS: Prednisolone 1%, Moxifloxacin 0.5%, Bromfenac 0.09% 5.6ML BTL OD (09:02)
[2025-01-28] MEDS: Tetracaine 0.5% 4 ML BTL OD (09:02)
[2025-01-28 09:25] VITALS: BP 132/84; PULSE 107; RESP 16; TEMP 36.1; O2SAT 91
--- NOTE | 2025-01-28 09:27 | W.PM.DSUDISC ---
Date of service: 01/28/25 Discharge Plan Disposition Patient Disposition: Home Discharge Details Attending Provider: Lakhwinder Rodriguez Primary Care Provider: Benton Blancas Home Meds and New Rx's Prescriptions: No Action atorvastatin 10 mg tablet 10 mg PO DAILY mirabegron [Myrbetriq] 25 mg tablet extended release 24 hr 25 mg PO DAILY Qty: 90 4RF albuterol sulfate 90 mcg/actuation HFA aerosol inhaler 2 puff inhalation Q4H PRN budesonide-formoterol 80-4.5 mcg/actuation HFA aerosol inhaler 2 puff inhalation DAILY cyclobenzaprine 10 mg tablet 10 mg PO TID PRN acetaminophen [Tylenol Extra Strength] 500 mg tablet 1,000 mg PO Q6H PRN Dulera 100-5 mcg/actuation HFA aerosol inhaler 2 puff INHALATION BID PRN Patient Comments: INHALE TWO PUFFS BY MOUTH TWICE A DAY vitamin K2 90 mcg capsule 90 mcg PO DAILY Breztri Aerosphere 160-9-4.8 mcg/actuation HFA aerosol inhaler 2 inh inhalation BID metformin [Glucophage XR] 500 mg tablet extended release 24 hr 500 mg PO DAILY cholecalciferol (vitamin D3) [Vitamin D3] 50 mcg (2,000 unit) capsule 50 mcg PO DAILY Discharge Instructions Stand Alone Forms: [facility] Post-Op Cataract, Shanti Walker ([facility]), Portal Information Discharge Orders Discharge Orders: Discharge Order (Routine); Ordered 01/28/25 Ordered By: Lakhwinder Rodriguez DS: Diagnosis Discharge Diagnosis (1) Cortical age-related cataract, right eye: Status: Resolved (2) Nuclear age-related cataract, right eye: Status: Resolved
--- NOTE | 2025-01-28 09:28 | ROE_ITS ---
Operative Note Operative Note PRE-OP DIAGNOSIS: Nuclear/cortical cataract, right eye POST-OP DIAGNOSIS: same PROCEDURE: Cataract extraction using phacoemulsification with intraocular lens implant, right eye SURGEON: Lakhwinder Rodriguez ANESTHESIA TYPE: Local By Surgeon and MAC Refer to Anesthesia Record ESTIMATED BLOOD LOSS: 0 PATHOLOGY: none sent COMPLICATIONS: None Patient was transported to: same day Patient's condition: stable Implants: Gus Clareon [id number] Indications: Progressive decreased vision due to cataract, right eye Procedure Description: CATARACT SURGERY OPERATIVE REPORT PREOPERATIVE DIAGNOSIS: Nuclear/cortical cataract, right eye POSTOPERATIVE DIAGNOSIS: Same OPERATION: Cataract extraction using phacoemulsification with posterior chamber intraocular lens implant, right eye. IOL: IOL Fabricator Foam Rubber/Model: Gus Clareon [id number] IOL Power: + 22.0 diopters IOL Serial Number: [id number] Optic Diameter: 6.0mm Haptic/Overall Diameter: 13.0mm PHACO INFO: Gus Centurion Vision System with OZil and Active Fluidics Cumulative Dispersed Energy (CDE): 11.60 seconds SURGEON: Lakhwinder Rodriguez MD, ADRIAN ANESTHESIA: Monitored Anesthesia Care (MAC), with local sub-tenon's anesthetic infiltration COMPLICATIONS: None SPECIMENS: None INDICATIONS FOR PROCEDURE: The patient is a 74-year-old male with history of diminished visual acuity in his right eye secondary to the development of nuclear/cortical cataract. He has a history of dense asteroid hyalosis and a remote history of blunt trauma to the eye requiring hospitalization. The option of cataract surgery was offered to the patient and he wished to proceed. See office notes for detailed information. PROCEDURE: The correct surgical eye was identified and marked as the right eye and the pupil was dilated in the preoperative area using mydriatics and cycloplegics. The dilated pupil size was 6.0 mm. Oral sedation was administered in the form of an Imprimis MKO Melt (midazolam 3mg/ketamine 25mg/ondansetron 2mg). The patient elected to proceed without oral sedation. The patient was brought to the operating room where cardiopulmonary monitoring was instituted and surgical time-out was performed, confirming the correct operative eye and IOL power. Topical anesthesia was administered and ophthalmic povidone-iodine 5% was instilled into the conjunctival fornices. The aimee-ocular area was prepped with Betadine 10% solution and draped in the usual sterile fashion for intraocular surgery, including an aperture drape. A Tegaderm transparent film dressing was cut in half and used to cover the lashes and lid margins. Care was taken to sequester the lashes and lid margins under the Tegaderm dressing. A lid speculum was placed between the lids of the operative eye and the Gus LuxOR Revalia operating microscope was maneuvered into position. Sunny scissors were then used to make a conjunctival buttonhole approximately 6mm posterior to the limbus in the inferonasal quadrant. Blunt dissection was carried out to expose bare sclera, and a blunt-tipped sub-tenon?s anesthesia cannula was introduced and passed posteriorly along the globe where non- preserved plain lidocaine was injected into posterior sub-Tenon?s space. A sideport knife was used to make a paracentesis port. VisionBlue was injected into the anterior chamber and allowed to sit for 30 seconds. Intraocular phenylephrine/lidocaine was injected into the anterior chamber. The anterior chamber was then filled with viscoelastic. A keratome knife was used to construct a two--plane clear corneal tunnel extending 2.0mm into clear cornea. A flap was raised on the anterior capsule and capsulorhexis forceps were used to complete a continuous curvilinear capsulorhexis of 5.0 mm. Balanced salt solution was then used to perform cortical cleaving hydrodissection and nuclear hydrodelineation until the lens could be freely rotated within the capsular bag. The lens nucleus was then disassembled and removed within the capsular bag and iris plane using phacoemulsification. Residual cortical material was removed using the I/A handpiece. The posterior capsule was carefully polished to remove as much residual lens epithelial cells as safely possible. The capsular bag was then inflated and the anterior chamber deepened with cohesive viscoelastic. The lens implant described above was inserted into the capsular bag using the Gus Autonome Injector. A Kuglen hook was used to dial the IOL into position. Residual viscoelastic was then removed first from posterior to the IOL, then from the anterior chamber using the I/A handpiece. The lens implant was noted to center nicely within the capsular bag. The incisions were stromally hydrated, and the anterior chamber was reformed using BSS. Then 0.5cc of moxifloxacin 1.0mg/ml were injected into the capsular bag and anterior chamber. The incisions were checked with a Weck spear and found to be secure. Several drops of ophthalmic povidone-iodine 5% were then applied to the eye followed by two drops of combination steroid/NSAID/antibiotic solution. The drapes were removed and a clear plastic protective eye shield was placed over the eye. The patient was then returned to Same Day Surgery in stable condition. Date of Procedure: 01/28/25
--- NOTE | 2025-01-28 09:35 | W.ANESPOSTOP ---
Postoperative Evaluation Date, Time and Location Date Performed: 01/28/25 Time Performed: 09:36 Patient Location: Day Surgery Unit Vital Signs Most Recent Imported Vital Signs: Most Recent Vital Signs Temp Pulse Resp BP Pulse Ox 36.1 C L 107 H 16 132/84 91 L 01/28/25 09:25 12 09:25 01/28/25 09:25 01/28/25 09:25 01/28/25 09:25 Pain Score Most Recent Pain Score: Most Recent Pain Score Pain Level 0 01/28/25 09:25 Assessment Mental Status: Awake (Alert & Oriented to Patient Baseline) Airway and Respiratory Function: Patent airway with normal (patient baseline) respiratory exam Cardiovascular Function: Hemodynamically Stable Hydration Status: Adequately Hydrated Nausea & Vomiting: No Nausea or Vomiting Pain: Pt. Denies Any Pain Peripheral Nerve Block: Patient did not receive a nerve block
[2025-01-28 09:47] VITALS: BP 102/75; PULSE 110; RESP 14; TEMP 36.6; O2SAT 91
== END 2025-01-28 09:59 | disposition home or self-care (01) ==
PROVIDERS: PCP Student in an Organized Health Care Education/Training Program; Visit Provider Ophthalmology
PROC: (CPT 66984; principal; 2025-01-28 09:30)
DX: H25.011 Cortical age-related cataract, right eye (principal); H25.11 Age-related nuclear cataract, right eye
CPT/HCPCS: 66984; 00123; V2632; J2003

== ENCOUNTER → 2025-02-15 13:00 | Outpatient (BNVA) | payer MEDICARE, SELFPAY | PROVIDERS: PCP Student in an Organized Health Care Education/Training Program; Referring Provider Student in an Organized Health Care Education/Training Program; Visit Provider Urology | DX: C67.9 Malignant neoplasm of bladder, unspecified (principal); N13.8 Other obstructive and reflux uropathy; N40.1 Benign prostatic hyperplasia with lower urinary tract symptoms | CPT/HCPCS: 81002; 52000 ==